=== PATIENT | male | born 1950 | race Caucasian/White ===

== ENCOUNTER → 2018-07-23 06:03 | Outpatient (CLI) | payer MEDICARE, SELFPAY ==
--- NOTE | 2018-07-23 06:07 | CA_ITS ---
PROCEDURE: 2-D M-mode and color Doppler study INDICATIONS FOR THE TEST: Chest pain COPD Heart Murmur Tobacco Smoking Palpitations Fatigue Syncope Edema HypertensionXDiabetes MellitusX Rheumatic Fever SOBXDOE Obesity HyperlipidemiaX Family History HD Additional History CAD,PRE OP,CABG,ABN EKG PATIENT INFORMATION HEIGHT: 68 WEIGHT:179 GENDER: Male B/P:139/69 2-D/M-MODE INTERPRETATION: 2-D MEASUREMENTS OBSERVED VALUES IN CMS Right Ventricular Dimension (RVDd) 4.1 Interventricular Septum (Thickness)(IVsd) .9 Left Ventricular Internal Dimensions(LVIDd) 5.8 Left Ventricular Posterior Wall (Thickness)(LVPWd) 1.2 Aortic Root 3.7 Aortic Cusp Separation 1.0 Left Atrial Dimensions (LAD) 4.1 2D 1. Left atrium is mildly enlarged, left ventricle is normal size, mild concentric left ventricular hypertrophy, visually estimated ejection fraction of 55% with no regional wall motion abnormality, there is abnormal septal motion. 2. The right atrium and right ventricle are mildly enlarged with normal contractility. 3. The aortic valve is thickened and calcified with mild resection the leaflet mobility. 4. The mitral and tricuspid valve leaflets are minimally thickened. 5. The pulmonic valve is poorly visualized. 6. No significant pericardial effusion noted. DOPPLER INTERROGATION: The maximum aortic out flow velocity recorded study 2.1 m/s, resulting in a mean gradient across valve of 11 mmHg this represents mild aortic stenosis, there is no significant aortic insufficiency present. There is mild mitral and tricuspid regurgitation, grade 1 diastolic dysfunction seen without tissue Doppler evidence of raised left atrial pressure. CONCLUSION: 1. Biatrial enlargement, normal left ventricular size, mild concentric left ventricular hypertrophy, visually estimated ejection fraction 55% with no regional wall motion abnormality, grade 1 diastolic dysfunction seen without tissue Doppler evidence of raised left atrial pressure. 2. Mildly enlarged right ventricle is normal contractility. 3. Thickened and calcified aortic valve with mean gradient across valve of 11 mmHg represents mild aortic stenosis, there is no aortic insufficiency present. 4. Mild mitral and tricuspid regurgitation 5. No significant pericardial effusion noted.
--- NOTE | 2018-07-23 06:14 | NM_ITS ---
CARDIOLITE SPECT MYOCARDIAL PERFUSION LEXISCAN, REST AND STRESS: History: Coronary artery disease, bypass surgery, hypertension, diabetes, hyperlipidemia, preop cardiovascular risk assessment Procedure: Patient received a 0.4 mg of intravenous Lexiscan, resting heart rate was 61 bpm resting blood pressure 161/80, with Lexiscan maximum heart rate achieved was 73 beats prominent which is less than 85% of the maximum predicted heart rate and a blood pressure was 134/70. With Lexiscan patient complained of nausea Electrocardiogram: Single electrocardiogram showed sinus rhythm right bundle branch block, with Lexiscan less than 1.[address] segment depression noted from the baseline EKG. The EKG portion of the Lexiscan Myoview is nondiagnostic. Cardiac stress and resting SPECT images: Cardiac stress and resting SPECT images were obtained using technetium 99 Myoview 32.4 mCi stress and 10.2 mCi at rest. Gated SPECT further analysis of segmental wall motion and calculation of the ejection fraction also done. Cardiac stress and resting SPECT images show a mild fixed defect in the inferior wall with normal contractility in the gated SPECT is likely secondary to soft tissue attenuation, computer derived ejection fraction is 53% with no regional wall motion abnormality, right ventricle is normal size and contractility. Conclusion: 1. The EKG portion of the Lexiscan Myoview is nondiagnostic. 2. No scintigraphic evidence of reversible ischemia seen, computer derived ejection fraction is 53% with no regional wall motion abnormality, right ventricle is normal size and contractility. 3. Normal Lexiscan Myoview study.
--- NOTE | 2018-07-23 09:31 | HMH.ITSHM ---
Current Home Medications as stated by this patient Braden Kramer or primary care sales representative. [] livilo pantaprazole lisinopril-hctz metformin januvia cardedilol levothyroxine
== END ==
PROVIDERS: PCP Pain Medicine Pain Medicine; Visit Provider Internal Medicine
DX: I25.10 Atherosclerotic heart disease of native coronary artery without angina pectoris (principal); R94.31 Abnormal electrocardiogram [ECG] [EKG]; E78.5 Hyperlipidemia, unspecified; I45.10 Unspecified right bundle-branch block; R06.02 Shortness of breath; Z01.818 Encounter for other preprocedural examination
CPT/HCPCS: 78452; 93017; 93306; A9502; J2785

== ENCOUNTER → 2020-01-25 12:28 | Outpatient (CLI) | payer MEDICARE, SELFPAY ==
--- NOTE | 2020-01-25 12:30 | CA_ITS ---
APPROVED REPORT Guard Entrance Registrar: Yuli Fulton RVT Laterality: Bilateral Study Quality: Good Indications: carotid bruit Risk Factors Hypertension: Hyperlipidemia Doppler Spectral Velocity Analysis ECA (R) 72.70/9.60 cm/s ECA (L) 75.90/8.60 cm/s dICA (R) 100.50/22.50 cm/s dICA (L) 66.30/23.50 cm/s Mukul (R) 99.40/16.00 cm/s Mukul (L) 82.30/22.50 cm/s pICA (R) 63.10/12.80 cm/s pICA (L) 61.00/13.90 cm/s dCCA (R) 88.80/13.90 cm/s dCCA (L) 77.00/12.80 cm/s pCCA (R) 109.10/11.80 cm/s pCCA (L) 123.00/12.80 cm/s Vert (R) 63.10/9.60 cm/s Vert (L) 47.00/12.80 cm/s ICA/CCA 1.13 ICA/CCA 1.07 Findings Study suggests less than 20% stenosis of the right internal cartoid artery. Study suggests less than 20% stenosis of the left internal cartoid artery. Antegrade flow seen bilateral vertebral arteries. Conclusion Study suggests less than 20% stenosis of the right internal cartoid artery. Study suggests less than 20% stenosis of the left internal cartoid artery. Antegrade flow seen bilateral vertebral arteries. Electronically signed by : Duglas Juarez MD 01/25/2020 15:42:04
[2020-01-25 13:22] LABS: Basophils % 0.8 % (0.1-2.0); Eosinophils # 0.1 K/mm3 (0.0-0.4); Eosinophils % 3.4 % (0.1-12.0); Hematocrit 41.2 % (42.0-52.0); Hemoglobin 13.6 g/dL (14.1-18.0); Lymphocytes # 1.1 K/mm3 (0.7-4.5); Lymphocytes % 25.6 % (10-50); Mean Corpuscular HGB Conc 32.9 g/dL (31.8-35.4); Mean Corpuscular Hemoglobin 31.7 pg (27.0-31.2); Mean Corpuscular Volume 96.4 fl (80-94); Mean Platelet Volume 8.6 fl (7.4-10.4); Monocytes # 0.3 K/mm3 (0.1-1.0); Monocytes % 7.7 % (1.7-9.3); Neutrophils # 2.6 K/mm3 (1.8-7.8); Neutrophils % 62.6 % (37.0-80.0); Platelet Count 117 K/mm3 (142-424); Red Blood Count 4.27 M/mm3 (4.60-6.20); Red Cell Distribution Width 14.3 % (11.5-17.5); White Blood Count 4.2 K/mm3 (4.8-10.8)
[2020-01-25 14:03] LABS: Chloride 106 mmol/L (98-107); Potassium 5.4 mmoL/L (3.5-5.1); Sodium 142 mmol/L (136-145)
[2020-01-25 14:06] LABS: Anion Gap 15.4 mEq/L (5-15); Blood Urea Nitrogen 28 mg/dl (9-20); Carbon Dioxide 26 mmol/L (22.0-30.0); Estimated Glomerular Filt Rate 50 ml/min (>60); GFR (African American) 61 ML/MIN (>60)
[2020-01-25 14:07] LABS: Calcium 10.5 mg/dl (8.4-10.2); Glucose 231 mg/dl (74-100)
[2020-01-25 15:38] LABS: Coronavirus 19 IgG Antibody Negative (Negative); Coronavirus 19 IgM Antibody Negative (Negative)
== END ==
PROVIDERS: PCP Pain Medicine Pain Medicine; Visit Provider Internal Medicine
DX: E78.5 Hyperlipidemia, unspecified (principal); I11.9 Hypertensive heart disease without heart failure; I20.9 Angina pectoris, unspecified; I35.0 Nonrheumatic aortic (valve) stenosis; R01.1 Cardiac murmur, unspecified; R09.89 Other specified symptoms and signs involving the circulatory and respiratory systems; Z95.1 Presence of aortocoronary bypass graft; Z01.818 Encounter for other preprocedural examination
CPT/HCPCS: 36415; 80048; 85025; 86328; 93880

== ENCOUNTER 2020-01-27 08:41 | Day surgery (SDC) | payer MEDICARE, SELFPAY ==
[2020-01-27] VITALS (17 sets, daily range): BP systolic 103–181; BP diastolic 48–87; PULSE 57–86; RESP 12–16; TEMP 36.6; O2SAT 90–97; BMI 27.3
--- NOTE | 2020-01-27 07:34 | IR_ITS ---
APPROVED REPORT Patient Location: Outpatient PROCEDURES Left heart catheterization Left ventriculogram Selective coronary angiogram Left internal mammary angiography Selective engagement of the saphenous vein graft to the diagonal artery Selective engagement of the saphenous vein graft to the ramus intermedius Selective engagement of the saphenous vein graft to the right coronary artery Drug-eluting stent deployment to the saphenous vein graft supplying the diagonal artery Drug-eluting stent deployment to the saphenous vein graft supplying the ramus intermedius INDICATION Coronary artery disease, Accelerated angina pectoris, History of coronary bypass surgery Informed consent was obtained prior to the procedure. COMPLICATIONS NONE Estimated Blood Loss: LESS THAN 10 ML TECHNIQUE One percent lidocaine used to anesthetize the right groin. The right femoral artery was accessed via the Seldinger technique and a 5 [place]er sheath was placed in the right femoral artery. A JL 4, JR4 catheter were used to perform left heart catheterization, left ventriculogram selective coronary angiography as well as selective engagement of the 3 vein grafts and the left internal mammary artery. At the end of the diagnostic procedure therapeutic heparin was administered and the 5 [place]er sheath was exchanged for a 6 [place] sheath. An LCB guide catheter was used to intubate the saphenous vein graft to the ramus intermedius and a Choice PT extra support wire was placed distally. A 3 mm x 38 mm resolute kelley stent was deployed at 24 juan reducing the stenosis to 40%. A 3.5 x 12 mm balloon was deployed at 24 juan which unsuccessfully expanded the stent therefore a 3.75 x 12 mm noncompliant balloon was deployed in the ostial proximal segment of the saphenous vein graft and deployed at 24 juan to finally open the stent completely providing excellent apposition of the stent with excellent post stent dilatation. HOANG-3 flow was present before and after the procedure. After achieving excellent angiographic results the apparatus was used to cannulate the saphenous vein graft to the diagonal artery where the same wire was placed into this graft. A 2.75 x 38 mm resolute kelley stent was deployed at 20 juan reducing the severe stenosis to 0%. HOANG-3 flow was present before and after the procedure. After achieving excellent angiographic results the apparatus was removed the sheath was removed good hemostasis was achieved using Perclose device patient was transferred to the postop holding area stable condition. Prior to the sheath being removed the groin was reprepped gloves were changed. ANGIOGRAPHIC RESULTS The left main artery Has a distal 90% stenosis The left anterior descending artery Is proximally occluded and gives rise to small spindly diagonal arteries The circumflex artery Ostially occluded The right coronary artery Dominant and has proximal 30% stenosis followed by distal 30% stenosis. The posterior descending artery is proximally occluded the posterior lateral branch is moderate bifurcating and has diffuse 40% stenoses The DOYLE ventriculogram reveals Preserved at 50% The left ventricular end-diastolic pressure 15 mmHg Left internal mammary artery is widely patent to a large LAD Saphenous vein graft to the right coronary artery is ostially occluded Saphenous vein graft to the ramus intermedius has severe proximal hazy 90% stenosis Saphenous vein graft to diagonal artery has severe proximal 70% stenosis IMPRESSION Coronary disease as described above Successful stenting of the saphenous vein graft to the ramus intermedius severe disease reduced to 0% with one long drug-eluting stent Successful stenting of the saphenous vein gra
[2020-01-27 10:06] LABS: Chloride 107 mmol/L (98-107); Potassium 4.3 mmoL/L (3.5-5.1); Sodium 141 mmol/L (136-145)
[2020-01-27 10:09] LABS: Anion Gap 14.3 mEq/L (5-15); Blood Urea Nitrogen 31 mg/dl (9-20); Calcium 9.8 mg/dl (8.4-10.2); Carbon Dioxide 24 mmol/L (22.0-30.0); Creatinine Clearance Estimated 54 mL/min (50-200); Estimated Glomerular Filt Rate 47 ml/min (>60); GFR (African American) 56 ML/MIN (>60); Glucose 259 mg/dl (74-100)
--- NOTE | 2020-01-27 13:56 | HMH.PHACLD ---
Braden Kramer has received discharge medication counseling on the following medications: PATIENT IS CURRENTLY TAKING ASPIRIN 81 MG (PATIENT INDICATES HE TAKE 1/2 TAB) DAILY, EFFIENT 10 MG DAILY, LIVALO 2 MG DAILY, CARVEDILOL 6.25 MG BID, AND LISINOPRIL HCTZ 20 MG/25MG DAILY.
[2020-01-27 15:33] LABS: CATHL Activated Clotting Time > 400 SEC (74-125)
== END 2020-01-27 16:00 | disposition home or self-care (01) ==
LOC: CATHLAB 08:41
PROVIDERS: PCP Pain Medicine Pain Medicine; Visit Provider Internal Medicine
DX: E78.5 Hyperlipidemia, unspecified (principal); I11.9 Hypertensive heart disease without heart failure; I35.0 Nonrheumatic aortic (valve) stenosis; R09.89 Other specified symptoms and signs involving the circulatory and respiratory systems; Z95.1 Presence of aortocoronary bypass graft; I25.118 Atherosclerotic heart disease of native coronary artery with other forms of angina pectoris; I25.718 Atherosclerosis of autologous vein coronary artery bypass graft(s) with other forms of angina pectoris; E03.9 Hypothyroidism, unspecified; Z88.8 Allergy status to other drugs, medicaments and biological substances; Z79.84 Long term (current) use of oral hypoglycemic drugs; Z79.82 Long term (current) use of aspirin; Z79.899 Other long term (current) drug therapy; E11.9 Type 2 diabetes mellitus without complications; I25.82 Chronic total occlusion of coronary artery
CPT/HCPCS: 80048; 85347; 92937; 92938; 93306; 93459; 99152; 99153; C1725; C1760; C1769; C1876; C1894; C9604; C9605; J1644; Q9967

== ENCOUNTER 2023-03-26 13:39 | Outpatient (CLI) | payer MEDICARE, SELFPAY ==
--- NOTE | 2023-03-26 | CA_ITS ---
APPROVED REPORT EXAM: Comprehensive 2D, Doppler, and color-flow Echocardiogram Vehicle Technician: Dina Juan CRT Ht: 5 ft 8 in Wt: 175lbs BSA: 1.93 BP: 146/52 mmHg Indications: Abnormal ECG, Chest Pain, Shortness of Breath, Diabetes, CAD, Hyperlipidemia, Hypertension/HDD, CABG, 2D Dimensions Left Atrium 3.15 cm LVEF (Chowdhury's) 45.90 % LVOT 1.99 cm (M/F) 1.5-2.5 LV Volume 173.90 mL LA Volume 39.30 mL LA Volume Index 20.40 mL/m2 (M/F) 16-34 EF AP4 55.00 % EF AP2 36.7 % EF BP 45.9 % GL Strain -16.6 % M-Mode Dimensions RVDd 3.27 cm (0.9-2.6) LVDd 5.15 cm (3.5-5.7) Ao Diam 5.37 cm (2.0-3.7) LVDs 3.82 cm (3.5-5.7) IVSd 1.63 cm (0.6-1.1) PWd 1.23 cm (0.6-1.1) EF (Teich) 50.50% FS 25.80% EDV (Teich) 126.60 mL TAPSE 1.83 (<1.7) ESV (Teich) 62.70 mL LV Diastology E Decel Time 283 (160-240 msec) E/A Ratio 1.03 MED E' 7.2 (>= 7 cm/sec) MED A' 9.80 cm/s E'/MED E' Ratio 12.94 (<= 14) LAT E' 9.4 (>= 10 cm/sec) LAT A' 9.20 cm/s E/LAT E' Ratio 9.91 (<= 14) Aortic Valve LVOT Max 183.0 (70-110 cm/s) JASMIN Index 1.01 cm2/m2 LVOT VTI 51.83 cm AoV Peak August. 314.0 (50-130 cm/s) AO Peak GR. 33.10 mmHg AO Mean GR. 22.80 (<5 mmHg) AO VTI 82.5 (18-25 cm) JASMIN (VTI) 1.95 (2.5-4.5 cm2) Mitral Valve MV E Max August. 93.0 (40-130 cm/s) MV A Velocity 90.0 (40-130 cm/s) E/A Ratio 1.03 MV Decel. Time 283 (160-240 ms) Tricuspid Valve TR P. Velocity 244.00 cm/s RAP Estimate 10.00 mmHg RVSP 33.80 mmHg Left Ventricle The left ventricle is normal size. Left ventricular systolic function is mild to moderately decreased. There is normal left ventricular wall thickness. There is mild to moderate global hypokinesis present. There is severe hypokinesis of the septal, inferoseptal, and anteroseptal LV diaz. Grade 1 diastolic dysfunction is present. LVEF is 40%. Right Ventricle Right ventricle is mildly dilated. Right ventricle is mildly hypokinetic. Atria The left atrium size is normal. The right atrium size is normal. There is no Doppler evidence of interatrial shunt. Aortic Valve The aortic valve is moderately thickened. Mild aortic stenosis. JASMIN is 1.7 cm2. Peak velocity 3.0 m/s. Mean AV gradient is 20 mmHg. Max AV gradient 40 mmHg. DI=0.57. SVi=78 mL/m2. Mitral Valve The mitral valve is normal in structure. No evidence of mitral valve stenosis. Trace mitral regurgitation. Tricuspid Valve The tricuspid valve leaflets are thin and pliable. Mild tricuspid regurgitation. RVSP is 20-25 mmHg. Pulmonic Valve The pulmonary valve is normal in structure. Trace pulmonic regurgitation. Great Vessels The aortic root is normal in size. The ascending aorta is not well visualized. IVC is normal in size and collapses >50% with inspiration. Pericardium There is no pericardial effusion. Other Information Study Quality: Fair Conclusion Mild to moderate reduction in LV systolic function (LVEF 40%). Severe hypokinesis of the septal, inferoseptal, and anteroseptal LV diaz. Mildly dilated RV with mild reduction in RV function. Moderate AV thickening is mild aortic stenosis (JASMIN is 1.7 cm2. Peak velocity 3.0 m/s. Mean AV gradient is 20 mmHg. Max AV gradient 40 mmHg. DI=0.57. SVi=78 mL/m2). Mild TR. Electronically signed by : Leticia Matamoros MD 03/29/2023 17:49:52
== END 2023-03-26 23:59 ==
LOC: RT 13:39
PROVIDERS: PCP Pain Medicine Pain Medicine; Visit Provider Physician Assistant
DX: R07.89 Other chest pain (principal); R94.31 Abnormal electrocardiogram [ECG] [EKG]; R60.0 Localized edema
CPT/HCPCS: 93306

== ENCOUNTER 2023-05-19 14:00 | Outpatient (CLI) | payer MEDICARE, SELFPAY ==
[2023-05-19 14:41] LABS: Basophils % 0.9 % (0.1-2.0); Eosinophils # 0.3 K/mm3 (0.0-0.4); Hematocrit 36.4 % (42.0-52.0); Lymphocytes # 1.1 K/mm3 (0.7-4.5); Lymphocytes % 25.1 % (10-50); Mean Corpuscular HGB Conc 32.9 g/dL (31.8-35.4); Mean Corpuscular Volume 103.2 fl (80-94); Mean Platelet Volume 8.8 fl (7.4-10.4); Monocytes # 0.3 K/mm3 (0.1-1.0); Neutrophils # 2.7 K/mm3 (1.8-7.8); Platelet Count 75 K/mm3 (142-424); Red Blood Count 3.52 M/mm3 (4.60-6.20); Red Cell Distribution Width 13.6 % (11.5-17.5); White Blood Count 4.5 K/mm3 (4.8-10.8)
[2023-05-19 14:55] LABS: Anion Gap 12.6 mEq/L (5-15); Blood Urea Nitrogen 27 mg/dl (9-20); Calcium 10.1 mg/dl (8.4-10.2); Carbon Dioxide 22 mmol/L (22.0-30.0); Chloride 113 mmol/L (98-107); Estimated Glomerular Filt Rate 54 ml/min (>60); GFR (African American) 66 ML/MIN (>60); Glucose 161 mg/dl (74-100); Potassium 4.6 mmoL/L (3.5-5.1); Sodium 143 mmol/L (136-145)
== END 2023-05-19 23:59 ==
LOC: LAB 14:00
PROVIDERS: Visit Provider Internal Medicine
DX: E11.9 Type 2 diabetes mellitus without complications (principal); E78.2 Mixed hyperlipidemia; I25.10 Atherosclerotic heart disease of native coronary artery without angina pectoris; R93.1 Abnormal findings on diagnostic imaging of heart and coronary circulation; Z79.84 Long term (current) use of oral hypoglycemic drugs; Z79.85 Long-term (current) use of injectable non-insulin antidiabetic drugs
CPT/HCPCS: 36415; 80048; 85025

== ENCOUNTER 2023-05-27 12:36 | Observation (INO) | payer MEDICARE, SELFPAY ==
[2023-05-27] VITALS (19 sets, daily range): BP systolic 122–157; BP diastolic 56–80; PULSE 55–75; RESP 16–18; TEMP 36.6–36.9; O2SAT 94–100; BMI 27.6; BMI 27.4
--- NOTE | 2023-05-27 07:19 | IR_ITS ---
APPROVED REPORT Patient Location: Outpatient Drug Purchaser: MARKELL Monzon RT (R) PROCEDURES Left heart catheterization Left ventriculogram Selective coronary angiogram Selective engagement of the left internal mammary artery supplying the LAD Selective engagement of saphenous vein graft to the right coronary Selective engage in the saphenous vein graft to the ramus intermedius Selective engagement of saphenous vein graft to the circumflex artery Bilateral selective renal angiography Drug-eluting stent deployment supplying the saphenous vein graft to the ramus intermedius FFR angiogram to the dominant [place] right coronary Drug-eluting stent deployment to the ostial proximal dominant right coronary INDICATION Coronary artery disease, Angina pectoris, Abnormal noninvasive testing, History of coronary bypass surgery, In-stent restenosis in the saphenous vein graft to the ramus intermedius, Angiographic ambiguity involving the dominant right coronary, FFR index of 0.79 in the proximal dominant right coronary, Chronic renal failure creatinine 1.4, 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 COMPLICATIONS NONE Estimated Blood Loss: LESS THAN 10 ML TECHNIQUE One percent lidocaine used to anesthetize the right groin. The right femoral artery was accessed via the Seldinger technique and a 5 [place] sheath was placed in the right femoral artery. A JL 4, JR4 catheter were used to perform left heart catheterization, left ventriculogram selective coronary angiography as well as selective engagement of the 3 vein grafts and the left internal mammary artery. The JR4 catheter was used to cannulate each renal artery and perform selective angiography based on hypertension probably vascular disease and renal insufficiency. At the end of the diagnostic angiogram therapeutic heparin was administered giving a therapeutic ACT and the 5 Q[place]ari sheath was exchanged for a 6 [place]ari sheath. A JR4 6 [place] catheter was used to intubate the saphenous vein graft to the ramus intermedius and a Choice PT extra-support wire was placed distally. A 3.5 x 38 mm Levy frontier stent was deployed at 24 juan reducing the severe stenosis to 0%. Excellent graft results were obtained. Following this FFR angiography was performed of the right coronary artery which demonstrated an FFR index of 0.79 in the proximal dominant right coronary artery. Because of this the guide catheter was placed in the right coronary artery followed by Choice PT extra-support wire. A guide liner was required for additional support and delivery and a 4 mm x 38 mm Levy frontier stent was deployed at 20 juan reducing the hemodynamically severe stenosis to 0%. Patient had a transient episode of bradycardia and hypotension which resolved after few minutes. No atropine was required. After achieving excellent angiographic results with HOANG-3 flow being present down the right coronary before and after the procedure the apparatus was removed the groin is reprepped closure change sheath was removed and hemostasis was achieved using Perclose device patient was transferred to the postop holding in stable condition ANGIOGRAPHIC RESULTS The left main artery Proximally occluded The right coronary artery Is a dominant vessel and has proximal 50 to 60% eccentric stenoses which proved to produce an FFR index of 0.79. Distally there are 40-50 and 60% stenoses throughout the right coronary artery with a 60% stenosis in the proximal posterior descending The DOYLE ventriculogram reveals Reduced at 40% The left ventricular end-diastolic pressure 15 mmHg MCD[place]LL to LAD widely patent Saphenous artery to circumflex artery is widely patent Saphenous vein graft to ramus intermedius has a ostial proximal concentric 90% stenosis within the stent. Following stenting there was wide patency of the saphenous vein graft with inline flow to the ramus intermedius Saphenous vein graft right coronary ostially occluded Right renal artery with a proximal 10 to 20% nonflow limiting stenosis Left renal artery with a proximal eccentric 30 to 40% nonflow limiting stenosis IMPRESSION Coronary disease as described above Successful stenting of the saphenous vein graft to the ramus intermedius severe disease reduced to 0% with 1 drug-eluting stent Hemodynamically severe stenosis in the proximal dominant right coronary artery creating an FFR index of 0.79 with successful stenting reducing the lesion to less than 10% with 1 drug-eluting stent Reduced ejection fraction Normal LVEDP Nonflow limiting renal artery stenosis as described above PLAN 1. Dual antiplatelet therapy 2. Patient received complex procedure with copious contrast in the setting of renal insufficiency and LV dysfunction. Patient should be admitted and given IV fluids and watch closely overnight given complex revascularization 3. Standard therapy for LV dysfunction 4. Avoidance of tobacco products 5. Risk factor modification 6. LDL less than 55 to achieve that high intensity statin Electronically signed by : Kennedy Clark MD 05/27/2023 12:50:45
[2023-05-27 10:08] LABS: Basophils # 0.1 K/mm3 (0-0.2); Basophils % 1.6 % (0.1-2.0); Eosinophils # 0.3 K/mm3 (0.0-0.4); Eosinophils % 7.2 % (0.1-12.0); Hemoglobin 12.6 g/dL (14.1-18.0); Lymphocytes # 1.2 K/mm3 (0.7-4.5); Lymphocytes % 25.9 % (10-50); Mean Corpuscular HGB Conc 32.3 g/dL (31.8-35.4); Mean Corpuscular Hemoglobin 33.7 pg (27.0-31.2); Mean Corpuscular Volume 104.4 fl (80-94); Mean Platelet Volume 8.5 fl (7.4-10.4); Monocytes # 0.4 K/mm3 (0.1-1.0); Monocytes % 7.7 % (1.7-9.3); Neutrophils # 2.6 K/mm3 (1.8-7.8); Neutrophils % 57.6 % (37.0-80.0); Platelet Count 88 K/mm3 (142-424); Red Blood Count 3.73 M/mm3 (4.60-6.20); Red Cell Distribution Width 14.1 % (11.5-17.5); White Blood Count 4.5 K/mm3 (4.8-10.8)
[2023-05-27 11:35] LABS: Chloride 114 mmol/L (98-107); Sodium 141 mmol/L (136-145)
[2023-05-27 11:36] LABS: Potassium 4.2 mmoL/L (3.5-5.1)
[2023-05-27 11:39] LABS: Anion Gap 12.2 mEq/L (5-15); Blood Urea Nitrogen 29 mg/dl (9-20); Calcium 10.2 mg/dl (8.4-10.2); Carbon Dioxide 19 mmol/L (22.0-30.0); Creatinine Clearance Estimated 57 mL/min (50-200); Estimated Glomerular Filt Rate 50 ml/min (>60); GFR (African American) 60 ML/MIN (>60); Glucose 140 mg/dl (74-100)
[2023-05-27] MEDS: LIDOCAINE 1% 10ML MDV 20 ML IJ (11:43)
[2023-05-27] MEDS: diphenhydrAMINE 50MG/ML VIAL 50 MG IV (11:43)
[2023-05-27] MEDS: 0.9 % SODIUM CHLORIDE 500 ML 25 ML IV (11:43)
[2023-05-27] MEDS: HEPARIN 1,000 UNITS/500ML NS (CATH LAB) 3000 UNIT IV (11:43)
[2023-05-27] MEDS: MIDAZOLAM HCL 1MG/1ML 5ML VIAL 1 MG IV (11:44)
[2023-05-27] MEDS: FENTANYL 100MCG/2ML VIAL 50 MCG IV (11:46)
[2023-05-27] MEDS: HEPARIN 1,000 UNITS/ML 10ML VIAL (CATH LAB) 10000 UNIT IV (12:37)
[2023-05-27] MEDS: PRASUGREL 10MG TAB 60 MG PO (12:44)
[2023-05-27] MEDS: IOPAMIDOL-370 (76%);100ML BOTTLE 150 ML IV (14:46)
[2023-05-27 14:49] LABS: CATHL Activated Clotting Time 284 SEC (74-125)
--- NOTE | 2023-05-27 14:57 | EXP.HP ---
History of Present Illness *Admission Date: 05/27/23 *Reason for visit:: chest pain, CKD *History of present illness: 72-year-old male with history of CABG x 5, CAD, hypertension, hyperlipidemia, hypothyroid, diabetes. He presented to [facility] for an elective left heart cath due to persistent chest pain. Patient also noted to have CKD with creatinine of 1.4. BUN 29. Extensive procedure due to evaluation of grafts and [place] vessels. Patient received 2 stents during his procedure, 1 to the saphenous graft in 1 to his [place] RCA. In the light of contrast load, CKD, femoral approach, cardiology requested admission for monitoring overnight and gentle hydration. On evaluation, patient initially was sleeping. Reevaluation later, he was awake and denied any significant pain at this time. Appears to have had improvement in symptoms. Making urine. On room air. No nausea or vomiting, no bleeding from femoral insertion site. Patient's at bedside. Denies any fever, confusion, headache. [facility] Disclaimer: The information contained in this section may have been updated after the patient was seen, as this information can be updated by other users. Medical History Chest pain Gastroesophageal reflux disease Abnormal EKG Right bundle branch block (RBBB) HLD (hyperlipidemia) Pre-op evaluation Diabetes SOB (shortness of breath) HHD (hypertensive heart disease) CAD (coronary artery disease) Surgical History S/P coronary artery bypass graft x 5 Social History Smoking Status: Never smoker alcohol intake: never substance use type: denies use current occupational status: retired Travel in the last 8 weeks: Inside the [place] Review of Systems Review of Systems Review of systems (narrative): 14 point review of systems performed, pertinent positives and negatives as per [facility] Meds Home Medications and Allergies Home Medications Medication Instructions Recorded Confirmed Type aspirin 81 mg tablet,delayed 81 mg PO DAILY 07/21/18 05/27/23 History release (Adult Low Dose Aspirin) carvedilol 6.25 mg tablet 6.25 mg PO BID 07/21/18 05/27/23 History febuxostat 40 mg tablet (Uloric) 40 mg PO DAILY 07/21/18 05/27/23 History levothyroxine 75 mcg tablet 75 mcg PO DAILY 07/21/18 05/27/23 History lisinopril 20 1 tab PO DAILY 07/21/18 05/27/23 History mg-hydrochlorothiazide 25 mg tablet metformin 1,000 mg tablet 1,000 mg PO BID 07/21/18 05/27/23 History pantoprazole 40 mg tablet,delayed 40 mg PO DAILY 07/21/18 05/27/23 History release (Protonix) pitavastatin calcium 2 mg tablet 2 mg PO DAILY 07/21/18 05/27/23 History (Livalo) prasugrel 10 mg tablet (Effient) 10 mg PO DAILY 07/21/18 05/27/23 History dapagliflozin propanediol 10 mg 10 mg PO DAILY 03/17/23 05/27/23 History tablet (Farxiga) finasteride 5 mg tablet 5 mg PO DAILY 03/17/23 05/27/23 History nitroglycerin 0.4 mg sublingual 0.4 mg buccal NEEDED PRN Chest 03/17/23 05/27/23 History tablet Pain tirzepatide 2.5 mg/0.5 mL 2.5 mg SQ WEEKLY 03/17/23 05/27/23 History subcutaneous pen injector (Mounjaro) New Prescriptions to Start Prescriptions: Allergies Allergy/AdvReac Type Severity Reaction Status Date / Time atorvastatin [From Lipitor] Allergy Mild Verified 05/19/23 13:29 pravastatin [From Pravachol] Allergy Mild Verified 05/19/23 13:29 rosuvastatin [From Crestor] Allergy Mild Verified 05/19/23 13:29 simvastatin [From Zocor] Allergy Mild Verified 05/19/23 13:29 Exam Data for Last 24 hours Vital signs and Labs for Last 24 Hours: Temp Pulse Resp BP Pulse Ox O2 Del Method 98.2 F 66 18 149/75 H 95 Room Air 05/27/23 09:45 05/27/23 13:00 05/27/23 13:00 05/27/23 13:00 05/27/23 13:00 05/27/23 13:00 Laboratory Results - last 24 hr 05/27/23 09:53: WBC 4.5 L, RBC 3.73 L, Hgb 12.6 L, Hct 39.0 L, MCV 104.4 H, MCH 33.7 H, MCHC 32.3, RDW 14.1, Plt Count 88 L, MPV 8.5, Neut % (Auto) 57.6, Lymph % (Auto) 25.9, [place] % (Auto) 7.7, Eos % (Auto) 7.2, Baso % (Auto) 1.6, Neut # (Auto) 2.6, Lymph # (Auto) 1.2, [place] # (Auto) 0.4, Eos # (Auto) 0.3, Baso # (Auto) 0.1, Sodium 141, Potassium 4.2, Chloride 114 H, Carbon Dioxide 19 L, Anion Gap 12.2, BUN 29 H, Creatinine 1.40 H, Estimated Creat Clear 57, Estimated GFR 50 L, Est GFR ( Amer) 60, Glucose 140 H, Calcium 10.2 05/27/23 12:11: Activated Clotting Time 284 H* I & O for Last 24 hours: Intake & Output 05/24/23 05/25/23 05/26/23 05/27/23 23:59 23:59 23:59 23:59 Weight 81.845 kg Constitutional Constitutional: no acute distress, average body habitus and cooperative *Routine HEENT Exam Head: Present normocephalic Eye: Present EOMI and PERRL ENT: Present mucous membranes moist *Routine Neck Exam Neck: Present supple; Absent lymphadenopathy *Routine Respiratory Exam Respiratory: Present CTA bilaterally; Absent rhonchi, wheezes or crackles *Routine Cardiovascular Exam Cardiovascular: Present RRR and murmur *Routine Abdominal Exam Abdominal: Present soft and normoactive bowel sounds; Absent tenderness *Routine Rectal Exam Rectal:: deferred *Routine Genitalia Exam Genitalia:: deferred *Routine Extremities Exam Extremities: Absent cyanosis, clubbing or edema *Routine Skin Exam Skin: Present warm; Absent rash *Routine Neurological Exam Neurological: Present alert, oriented X3 and moving all extremities; Absent altered mental status Assessment and Plan *Assessment and plan (1) Typical angina: Status: Acute Category: Medical Code(s): I20.9 - Angina pectoris, unspecified (2) CAD (coronary artery disease): Status: Chronic Qualifiers: Associated angina: without angina Coronary Disease-Associated Artery/Lesion type: [place] artery [place] vs. transplanted heart: [place] heart Qualified Code(s): I25.10 - Atherosclerotic heart disease of [place] coronary artery without angina pectoris Category: Medical Code(s): I25.10 - Atherosclerotic heart disease of [place] coronary artery without angina pectoris (3) HHD (hypertensive heart disease): Status: Chronic Qualifiers: Heart failure presence: without heart failure Qualified Code(s): I11.9 - Hypertensive heart disease without heart failure Category: Medical Code(s): I11.9 - Hypertensive heart disease without heart failure (4) S/P coronary artery bypass graft x 5: Status: Chronic Category: Surgical Code(s): Z95.1 - Presence of aortocoronary bypass graft (5) Diabetes: Status: Chronic Qualifiers: Diabetes mellitus complication status: without complication Diabetes mellitus detention insulin use: without detention use Diabetes mellitus type: type 2 Qualified Code(s): E11.9 - Type 2 diabetes mellitus without complications Category: Medical Code(s): E11.9 - Type 2 diabetes mellitus without complications (6) HLD (hyperlipidemia): Status: Chronic Qualifiers: Hyperlipidemia type: mixed hyperlipidemia Qualified Code(s): E78.2 - Mixed hyperlipidemia Category: Medical Code(s): E78.5 - Hyperlipidemia, unspecified (7) Gastroesophageal reflux disease: Status: Chronic Qualifiers: Esophagitis presence: esophagitis presence not specified Qualified Code(s): K21.9 - Gastro-esophageal reflux disease without esophagitis Category: Medical Code(s): K21.9 - Gastro-esophageal reflux disease without esophagitis Plan 72-year-old male with multiple cardiac comorbidities, seen for elective cath. In setting of chronic kidney disease and high contrast load from complexity of procedure, cardiology requested admission for observation overnight. Discussed case with cardiology, patient had good results but would benefit from serial monitoring and observation. Medicine agreed to admit. Stable on evaluation. Problems addressed as follows Typical angina CAD History of CABG HLD -Taken for cath today. Received 2 stents, 1 to saphenous graft and 1 to RCA. Good results with no further significant flow-limiting lesions. Monitor overnight. Continue aspirin 81 mg, prasugrel 10 mg. -Cardiology consulted, recommend monitoring overnight and continuing dual antiplatelet therapy. Pending kidney function, anticipate discharge in the next day or two -Continue carvedilol 6.25 mg twice -Resume statin CKD: - baseline Cr 1.4, BUN 28. Gentle hydration overnight with NS at 100 cc an hour for 1 L. Repeat CBC, CMP, magnesium ordered for the morning. Diabetes -Continue metformin 1000 mg twice daily. -A1c pending -Sliding scale insulin with fingersticks ACHS BPH: Continue finasteride 5mg daily GERD: Continue protonix 40mg daily Full code Heparinized and [facility] Cardiac diet
--- NOTE | 2023-05-27 17:35 | PC.NURSE ---
Patient new admit from [facility]. Patient a&ox4 and vss.
[2023-05-27] MEDS: 0.9 % SODIUM CHLORIDE 1000ML 1,000 ML 100 ML IV (18:44)
[2023-05-27] MEDS: ACETAMINOPHEN 325MG TAB 650 MG PO (22:40)
[2023-05-28] VITALS: BP 134/64; PULSE 57; PULSE 61; RESP 16; TEMP 37.1; O2SAT 98
[2023-05-28 04:00] VITALS: BP 111/52; PULSE 63; PULSE 65; RESP 16; TEMP 37.4; O2SAT 97; BMI 27.3
[2023-05-28 06:25] LABS: Basophils # 0.1 K/mm3 (0-0.2); Basophils % 1.1 % (0.1-2.0); Eosinophils # 0.3 K/mm3 (0.0-0.4); Eosinophils % 5.7 % (0.1-12.0); Hematocrit 34.2 % (42.0-52.0); Lymphocytes # 1.1 K/mm3 (0.7-4.5); Lymphocytes % 25.7 % (10-50); Mean Corpuscular HGB Conc 32.8 g/dL (31.8-35.4); Mean Corpuscular Hemoglobin 33.6 pg (27.0-31.2); Mean Corpuscular Volume 102.2 fl (80-94); Mean Platelet Volume 8.5 fl (7.4-10.4); Monocytes # 0.3 K/mm3 (0.1-1.0); Monocytes % 7.4 % (1.7-9.3); Neutrophils # 2.6 K/mm3 (1.8-7.8); Platelet Count 90 K/mm3 (142-424); Red Blood Count 3.34 M/mm3 (4.60-6.20); Red Cell Distribution Width 14.2 % (11.5-17.5); White Blood Count 4.3 K/mm3 (4.8-10.8)
[2023-05-28 06:36] LABS: Anion Gap 12.3 mEq/L (5-15); Blood Urea Nitrogen 28 mg/dl (9-20); Calcium 9.5 mg/dl (8.4-10.2); Carbon Dioxide 19 mmol/L (22.0-30.0); Chloride 114 mmol/L (98-107); Creatinine Clearance Estimated 46 mL/min (50-200); Estimated Glomerular Filt Rate 40 ml/min (>60); GFR (African American) 48 ML/MIN (>60); Glucose 179 mg/dl (74-100); Potassium 4.3 mmoL/L (3.5-5.1); Sodium 141 mmol/L (136-145)
[2023-05-28 06:44] LABS: Hemoglobin 11.2 g/dL (14.1-18.0)
[2023-05-28] MEDS: ACETAMINOPHEN 325MG TAB 650 MG PO (07:08)
[2023-05-28 08:00] VITALS: BP 134/65; PULSE 60; PULSE 68; RESP 20; TEMP 36.5; O2SAT 98
--- NOTE | 2023-05-28 08:22 | HMH.PHAINT1 ---
Pharmacy Intervention Comments: Home medication list verified via outside pharmacy and patient
--- NOTE | 2023-05-28 09:59 | P.DS_ITS ---
General Admission date:: 05/27/23 Discharge date: 05/28/23 HPI HPI HPI: 72-year-old male with history of CABG x 5, CAD, hypertension, hyperlipidemia, hypothyroid, diabetes. He presented to [facility] for an elective left heart cath due to persistent chest pain. Patient also noted to have CKD with creatinine of 1.4. BUN 29. Extensive procedure due to evaluation of grafts and [place] vessels. Patient received 2 stents during his procedure, 1 to the saphenous graft in 1 to his [place] RCA. In the light of contrast load, CKD, femoral approach, cardiology requested admission for monitoring overnight and gentle hydration. On evaluation, patient initially was sleeping. Reevaluation later, he was awake and denied any significant pain at this time. Appears to have had improvement in symptoms. Making urine. On room air. No nausea or vomiting, no bleeding from femoral insertion site. Patient's at bedside. Denies any fever, confusion, headache. Hospital Course Hospital Course Hospital Course: 72-year-old male with multiple cardiac comorbidities, seen for elective cath. In setting of chronic kidney disease and high contrast load from complexity of procedure, cardiology requested admission for observation overnight. Discussed case with cardiology, patient had good results. Monitored overnight to monitor kidney function and stability of right femoral access site. No issues overnight. Labs acceptable this morning. Making good urine. Stable to discharge home. Problems addressed as follows: Typical angina CAD History of CABG HLD -Taken for cath on 05/26. Tolerated procedure well. Received 2 stents, 1 to saphenous graft and 1 to RCA. Good results with no further significant flow- limiting lesions. Monitored overnight. Continue aspirin 81 mg, prasugrel 10 mg. Cardiology evaluated patient the following morning (morning of discharge). Given clinical stability and stability of kidney function with good urine output, okay to discharge home. Will continue carvedilol 6.25 mg twice daily. Resume statin therapy. Discontinue lisinopril and initiate Entresto twice daily. Stable to discharge home with close follow-up with cardiology. CKD: - baseline Cr 1.4, BUN 28. Hydrated overnight with 1 L IV fluids. BUN remained stable at 28, creatinine bumped slightly to 1.7. Will have repeat labs next week. Diabetes -Continue metformin 1000 mg twice daily. A1c well-controlled at 6.1. Continue home regimen. BPH: Continue finasteride 5mg daily GERD: Continue protonix 40mg daily Exam Data for Last 24 hours Vital signs and Labs for Last 24 Hours: Temp Pulse Resp BP Pulse Ox O2 Del Method 97.7 F 68 20 134/65 98 Room Air 05/28/23 08:00 05/28/23 08:00 05/28/23 08:00 05/28/23 08:00 05/28/23 08:00 05/28/23 08:00 Laboratory Results - last 24 hr 05/27/23 09:53: WBC 4.5 L, RBC 3.73 L, Hgb 12.6 L, Hct 39.0 L, MCV 104.4 H, MCH 33.7 H, MCHC 32.3, RDW 14.1, Plt Count 88 L, MPV 8.5, Neut % (Auto) 57.6, Lymph % (Auto) 25.9, [place] % (Auto) 7.7, Eos % (Auto) 7.2, Baso % (Auto) 1.6, Neut # (Auto) 2.6, Lymph # (Auto) 1.2, [place] # (Auto) 0.4, Eos # (Auto) 0.3, Baso # (Auto) 0.1, Sodium 141, Potassium 4.2, Chloride 114 H, Carbon Dioxide 19 L, Anion Gap 12.2, BUN 29 H, Creatinine 1.40 H, Estimated Creat Clear 57, Estimated GFR 50 L, Est GFR ( Amer) 60, Glucose 140 H, Calcium 10.2 05/27/23 12:11: Activated Clotting Time 284 H* 05/28/23 05:13: WBC 4.3 L, RBC 3.34 L, Hgb 11.2 L D, Hct 34.2 L, MCV 102.2 H, MCH 33.6 H, MCHC 32.8, RDW 14.2, Plt Count 90 L, MPV 8.5, Neut % (Auto) 60.0, Lymph % (Auto) 25.7, [place] % (Auto) 7.4, Eos % (Auto) 5.7, Baso % (Auto) 1.1, Neut # (Auto) 2.6, Lymph # (Auto) 1.1, [place] # (Auto) 0.3, Eos # (Auto) 0.3, Baso # (Auto) 0.1, Sodium 141, Potassium 4.3, Chloride 114 H, Carbon Dioxide 19 L, Anion Gap 12.3, BUN 28 H, Creatinine 1.70 H D, Estimated Creat Clear 46, Estimated GFR 40 L, Est GFR ( Amer) 48 L, Glucose 179 H D, Calcium 9.5 I & O for Last 24 hours: Intake & Output 05/25/23 05/26/23 05/27/23 05/28/23 23:59 23:59 23:59 23:59 Intake Total 510 / 750 480 / 480 Output Total 0 / 0 Balance 510 / 750 480 / 480 Weight 81.845 kg 81.845 kg Constitutional Constitutional: no acute distress, average body habitus and cooperative *Routine HEENT Exam Head: Present normocephalic Eye: Present PERRL *Routine Respiratory Exam Respiratory: Present CTA bilaterally; Absent accessory muscle use, wheezes or crackles *Routine Cardiovascular Exam Cardiovascular: Present RRR, Normal S1, Normal S2 and murmur Comments: Right groin cath site normal on inspection and palpation *Routine Abdominal Exam Abdominal: Present soft; Absent tenderness *Routine Rectal Exam Patient deferred: visual exam *Routine Exam Patient deferred: penile exam *Routine Extremities Exam Extremities: Present pulses intact; Absent cyanosis or edema *Routine Skin Exam Skin: Present intact; Absent erythema or wounds *Routine Neurological Exam Neurological: Present alert, oriented X3 and moving all extremities; Absent altered mental status Routine Psychiatric Exam Psychiatric: Present cooperative Results Data Completed and Pending Labs on day of discharge: Labs from last 24 hours 05/28/23 05/27/23 05/27/23 05:13 12:11 09:53 WBC 4.3 L 4.5 L RBC 3.34 L 3.73 L Hgb 11.2 L D 12.6 L Hct 34.2 L 39.0 L MCV 102.2 H 104.4 H MCH 33.6 H 33.7 H MCHC 32.8 32.3 RDW 14.2 14.1 Plt Count 90 L 88 L MPV 8.5 8.5 Neut % (Auto) 60.0 57.6 Lymph % (Auto) 25.7 25.9 [place] % (Auto) 7.4 7.7 Eos % (Auto) 5.7 7.2 Baso % (Auto) 1.1 1.6 Neut # (Auto) 2.6 2.6 Lymph # (Auto) 1.1 1.2 [place] # (Auto) 0.3 0.4 Eos # (Auto) 0.3 0.3 Baso # (Auto) 0.1 0.1 Activated Clotting Time 284 H* Sodium 141 141 Potassium 4.3 4.2 Chloride 114 H 114 H Carbon Dioxide 19 L 19 L Anion Gap 12.3 12.2 BUN 28 H 29 H Creatinine 1.70 H D 1.40 H Estimated Creat Clear 46 57 Estimated GFR 40 L 50 L Est GFR ( Amer) 48 L 60 Glucose 179 H D 140 H Calcium 9.5 10.2 DS: Diagnosis Discharge Diagnosis (1) Typical angina: Status: Acute Code(s): I20.9 - Angina pectoris, unspecified (2) CAD (coronary artery disease): Status: Chronic Code(s): I25.10 - Atherosclerotic heart disease of [place] coronary artery without angina pectoris Qualifiers: Associated angina: without angina Coronary Disease-Associated Artery/Lesion type: [place] artery [place] vs. transplanted heart: [place] heart Qualified Code(s): I25.10 - Atherosclerotic heart disease of [place] coronary artery without angina pectoris (3) HHD (hypertensive heart disease): Status: Chronic Code(s): I11.9 - Hypertensive heart disease without heart failure Qualifiers: Heart failure presence: without heart failure Qualified Code(s): I11.9 - Hypertensive heart disease without heart failure (4) S/P coronary artery bypass graft x 5: Status: Chronic Code(s): Z95.1 - Presence of aortocoronary bypass graft (5) Diabetes: Status: Chronic Code(s): E11.9 - Type 2 diabetes mellitus without complications Qualifiers: Diabetes mellitus complication status: without complication Diabetes mellitus [employer] insulin use: without [place] [employer] use Diabetes mellitus type: type 2 Qualified Code(s): E11.9 - Type 2 diabetes mellitus without complications (6) HLD (hyperlipidemia): Status: Chronic Code(s): E78.5 - Hyperlipidemia, unspecified Qualifiers: Hyperlipidemia type: mixed hyperlipidemia Qualified Code(s): E78.2 - Mixed hyperlipidemia (7) Gastroesophageal reflux disease: Status: Chronic Code(s): K21.9 - Gastro-esophageal reflux disease without esophagitis Qualifiers: Esophagitis presence: esophagitis presence not specified Qualified Code(s): K21.9 - Gastro-esophageal reflux disease without esophagitis Meds Home Medications and Allergies Home Medications Medication Instructions Recorded Confirmed Type aspirin 81 mg tablet,delayed 81 mg PO DAILY 07/21/18 05/27/23 History release (Adult Low Dose Aspirin) carvedilol 6.25 mg tablet 6.25 mg PO BID 07/21/18 05/27/23 History febuxostat 40 mg tablet (Uloric) 40 mg PO DAILY 07/21/18 05/27/23 History levothyroxine 75 mcg tablet 75 mcg PO DAILY 07/21/18 05/28/23 History metformin 1,000 mg tablet 1,000 mg PO BID 07/21/18 05/27/23 History pantoprazole 40 mg tablet,delayed 40 mg PO DAILY 07/21/18 05/27/23 History release (Protonix) pitavastatin calcium 2 mg tablet 2 mg PO DAILY 07/21/18 05/27/23 History (Livalo) prasugrel 10 mg tablet (Effient) 10 mg PO DAILY 07/21/18 05/27/23 History dapagliflozin propanediol 10 mg 10 mg PO DAILY 03/17/23 05/28/23 History tablet (Farxiga) finasteride 5 mg tablet 5 mg PO DAILY 03/17/23 05/28/23 History nitroglycerin 0.4 mg sublingual 0.4 mg buccal NEEDED PRN Chest 03/17/23 05/27/23 History tablet Pain tirzepatide 2.5 mg/0.5 mL 2.5 mg SQ WEEKLY 03/17/23 05/27/23 History subcutaneous pen injector (Mounjaro) sacubitril 24 mg-valsartan 26 mg 1 tab PO BID 30 days #60 tabs 05/28/23 Rx tablet (Entresto) New Prescriptions to Start Prescriptions: sacubitril-valsartan [Entresto] Arnulfo Cortés Allergies Allergy/AdvReac Type Severity Reaction Status Date / Time atorvastatin [From Lipitor] Allergy Mild Verified 05/19/23 13:29 pravastatin [From Pravachol] Allergy Mild Verified 05/19/23 13:29 rosuvastatin [From Crestor] Allergy Mild Verified 05/19/23 13:29 simvastatin [From Zocor] Allergy Mild Verified 05/19/23 13:29 Discharge Plan Disposition Patient Disposition: Home, Self-Care Condition: Good Follow up Plan Follow up with: Kennedy Clark MD [Staff Physician] - 06/04/23 11:00 am Meg Teixeira MD [Referring] - 06/02/23 11:30 am Prescriptions/Medication Reconciliation: New Entresto 24-26 mg tablet 1 tab PO BID 30 Days Qty: 60 0RF Continued carvedilol 6.25 mg tablet 6.25 mg PO BID prasugrel [Effient] 10 mg tablet 10 mg PO DAILY levothyroxine 75 mcg tablet 75 mcg PO DAILY Livalo 2 mg tablet 2 mg PO DAILY pantoprazole [Protonix] 40 mg tablet,delayed release (DR/EC) 40 mg PO DAILY Uloric 40 mg tablet 40 mg PO DAILY metformin 1,000 mg tablet 1,000 mg PO BID aspirin [Adult Low Dose Aspirin] 81 mg tablet,delayed release (DR/EC) 81 mg PO DAILY Farxiga 10 mg tablet 10 mg PO DAILY finasteride 5 mg tablet 5 mg PO DAILY nitroglycerin 0.4 mg tablet, sublingual 0.4 mg buccal NEEDED PRN (Reason: Chest Pain) Patient Comments: DISSOLVE 1 TABLET UNDER TONGUE EVERY 5 MINS FOR UP TO 3 DOSES NEEDED FOR CHEST PAIN. CALL 911 IF PAIN PERSISTS Mounjaro 2.5 mg/0.5 mL pen injector 2.5 mg SQ WEEKLY Discontinued lisinopril-hydrochlorothiazide 20-25 mg tablet 1 tab PO DAILY Other Ambulatory Orders: Basic Metabolic Panel (Routine) Timeframe: 20230604 Facility: [facility] - Location: Laboratory Ordered By: Osmin Watkins Hemoglobin and Hematocrit (Timed) Timeframe: 20230604 Facility: [facility] - Location: Laboratory Ordered By: Osmin Watkins Problem Reconciliation Problems Reviewed?: Yes Patient Discharge Instructions ACTIVITY: Continue current activity DIET: continue same diet Patient Instructions: DI for Cardiac Catheterization, DI for Surgical Site Infection, DI for Moderate Sedation, DI for Post-Surgical Bleeding Providers Primary Care Provider: Provider,Referral Admit Provider: Arnulfo Cortés Attending Provider: Arnulfo Cortés
--- NOTE | 2023-05-28 10:47 | EXP.CARD.CON ---
History of Present Illness History of Present Illness Consult date: 05/28/23 Requesting physician: Arnulfo Cortés Consult reason: post-op evaluation Chief complaint: Chest pain History of present illness: 72-year-old white male with history of CABG 2010, MARCO A 2019, diabetes mellitus, hypertension, hyperlipidemia. Patient had complaints of worsening chest discomfort shortness of breath as an outpatient. 2D echo revealed EF was down to 40% with several diaz revealing hypokinesis. He underwent left heart cath yesterday with significant multivessel disease-please refer to that report for details. He was kept overnight for observation of his renal function and for any arrhythmia. He reports feeling well this morning, no events overnight. His creatinine was up slightly from 1.3-1.7. He has been given 1 bag of normal saline. BP stable, other labs stable. No pain swelling or discomfort at right groin cath site. [facility] Disclaimer: The information contained in this section may have been updated after the patient was seen, as this information can be updated by other users. Medical History Chest pain Gastroesophageal reflux disease Abnormal EKG Right bundle branch block (RBBB) HLD (hyperlipidemia) Pre-op evaluation Diabetes SOB (shortness of breath) HHD (hypertensive heart disease) CAD (coronary artery disease) Surgical History S/P coronary artery bypass graft x 5 Social History Smoking Status: Never smoker alcohol intake: never substance use type: denies use current occupational status: retired Travel in the last 8 weeks: Inside the [facility] Review of Systems Constitutional Constitutional: Denies fatigue and Denies weakness Eyes Eyes: Denies loss of vision ENT Ears, Nose, Mouth, and Throat: Denies hearing loss and Denies vertigo *Cardiovascular Cardiovascular: Reports chest pain, Reports dyspnea and Denies syncope *Respiratory Respiratory: Denies cough and Reports dyspnea *Gastrointestinal Gastrointestinal: Denies change in stool character, Denies nausea and Denies vomiting *Genitourinary Genitourinary: Denies difficulty urinating *Musculoskeletal Musculoskeletal: Denies muscle weakness Integumentary/Breasts Skin/Breast: Denies changing lesions *Neurologic Neurologic: Denies loss of vision, Denies syncope, Denies vertigo and Denies weakness Endocrine Endocrine: Denies fatigue Exam Data for Last 24 hours Vital signs and Labs for Last 24 Hours: Temp Pulse Resp BP Pulse Ox O2 Del Method 97.7 F 68 20 134/65 98 Room Air 05/28/23 08:00 05/28/23 08:00 05/28/23 08:00 05/28/23 08:00 05/28/23 08:00 05/28/23 08:00 Laboratory Results - last 24 hr 05/27/23 09:53: Sodium 141, Potassium 4.2, Chloride 114 H, Carbon Dioxide 19 L, Anion Gap 12.2, BUN 29 H, Creatinine 1.40 H, Estimated Creat Clear 57, Estimated GFR 50 L, Est GFR ( Amer) 60, Glucose 140 H, Calcium 10.2 05/27/23 12:11: Activated Clotting Time 284 H* 05/28/23 05:13: WBC 4.3 L, RBC 3.34 L, Hgb 11.2 L D, Hct 34.2 L, MCV 102.2 H, MCH 33.6 H, MCHC 32.8, RDW 14.2, Plt Count 90 L, MPV 8.5, Neut % (Auto) 60.0, Lymph % (Auto) 25.7, [place] % (Auto) 7.4, Eos % (Auto) 5.7, Baso % (Auto) 1.1, Neut # (Auto) 2.6, Lymph # (Auto) 1.1, [place] # (Auto) 0.3, Eos # (Auto) 0.3, Baso # (Auto) 0.1, Sodium 141, Potassium 4.3, Chloride 114 H, Carbon Dioxide 19 L, Anion Gap 12.3, BUN 28 H, Creatinine 1.70 H D, Estimated Creat Clear 46, Estimated GFR 40 L, Est GFR ( Amer) 48 L, Glucose 179 H D, Calcium 9.5 I & O for Last 24 hours: Intake & Output 05/25/23 05/26/23 05/27/23 05/28/23 23:59 23:59 23:59 23:59 Intake Total 510 / 750 480 / 480 Output Total 0 / 0 Balance 510 / 750 480 / 480 Weight 180 lb 7 oz 180 lb 6.997 oz Constitutional Constitutional: no acute distress and cooperative *Routine HEENT Exam Eye: Present PERRL *Routine Respiratory Exam Respiratory: Present CTA bilaterally; Absent accessory muscle use, wheezes or crackles *Routine Cardiovascular Exam Cardiovascular: Present RRR, Normal S1 and Normal S2; Absent murmur, gallop or rubs Comments: Right groin cath site normal on inspection and palpation *Routine Abdominal Exam Abdominal: Present soft; Absent tenderness *Routine Extremities Exam Extremities: Present pulses intact; Absent cyanosis or edema *Routine Skin Exam Skin: Present intact; Absent erythema or wounds *Routine Neurological Exam Neurological: Present alert and oriented X3 Routine Psychiatric Exam Psychiatric: Present cooperative Meds Home Medications and Allergies Home Medications Medication Instructions Recorded Confirmed Type aspirin 81 mg tablet,delayed 81 mg PO DAILY 07/21/18 05/27/23 History release (Adult Low Dose Aspirin) carvedilol 6.25 mg tablet 6.25 mg PO BID 07/21/18 05/27/23 History febuxostat 40 mg tablet (Uloric) 40 mg PO DAILY 07/21/18 05/27/23 History levothyroxine 75 mcg tablet 75 mcg PO DAILY 07/21/18 05/28/23 History metformin 1,000 mg tablet 1,000 mg PO BID 07/21/18 05/27/23 History pantoprazole 40 mg tablet,delayed 40 mg PO DAILY 07/21/18 05/27/23 History release (Protonix) pitavastatin calcium 2 mg tablet 2 mg PO DAILY 07/21/18 05/27/23 History (Livalo) prasugrel 10 mg tablet (Effient) 10 mg PO DAILY 07/21/18 05/27/23 History dapagliflozin propanediol 10 mg 10 mg PO DAILY 03/17/23 05/28/23 History tablet (Farxiga) finasteride 5 mg tablet 5 mg PO DAILY 03/17/23 05/28/23 History nitroglycerin 0.4 mg sublingual 0.4 mg buccal NEEDED PRN Chest 03/17/23 05/27/23 History tablet Pain tirzepatide 2.5 mg/0.5 mL 2.5 mg SQ WEEKLY 03/17/23 05/27/23 History subcutaneous pen injector (Mounjaro) sacubitril 24 mg-valsartan 26 mg 1 tab PO BID 30 days #60 tabs 05/28/23 Rx tablet (Entresto) New Prescriptions to Start Prescriptions: sacubitril-valsartan [Entresto] Moo,Arnulfo Allergies Allergy/AdvReac Type Severity Reaction Status Date / Time atorvastatin [From Lipitor] Allergy Mild Verified 05/19/23 13:29 pravastatin [From Pravachol] Allergy Mild Verified 05/19/23 13:29 rosuvastatin [From Crestor] Allergy Mild Verified 05/19/23 13:29 simvastatin [From Zocor] Allergy Mild Verified 05/19/23 13:29 Assessment and Plan *Assessment and plan (1) CAD (coronary artery disease): Status: Chronic Qualifiers: Coronary Disease-Associated Artery/Lesion type: [place] artery [place] vs. transplanted heart: [place] heart Associated angina: without angina Qualified Code(s): I25.10 - Atherosclerotic heart disease of [place] coronary artery without angina pectoris Category: Medical Code(s): I25.10 - Atherosclerotic heart disease of [place] coronary artery without angina pectoris (2) Chronic kidney disease: Status: Acute Category: Medical Code(s): N18.9 - Chronic kidney disease, unspecified (3) HFrEF (heart failure with reduced ejection fraction): Status: Acute Category: Medical Code(s): I50.20 - Unspecified systolic (congestive) heart failure Plan MV-CAD s/p PCI 05/27/2023 - CABG 2010, MARCO A 2019, MARCO A 2023 - [facility] Findings: RCA 50?60 with FFR 0.79 (stented) also 40?50 and 60% lesions PDA 60% MCDOWELL to LAD-open Saphenous to left circumflex-open Saphenous to ramus-proximal 90% in-stent stenosis, stented successfully Saphenous RCA-ostial occlusion Right renal artery 10-20% Left renal artery 30-40% EF 40% -Discussed with patient and his in detail that he has severe multivessel disease and needs aggressive risk factor control. -DC home with DAPT, BB, Statin, Entresto. CKD?3 -Baseline creatinine 1.4, elevated to 1.7 here post procedure. He has been given 1 L normal saline -No indication to keep him inpatient, this was only a 20% elevation post procedure. He should continue hydration at home and repeat labs early next week. HFrEF, Ischemic Cardiomyopathy - new dx March of this year with EF 40% - cont BB, Farxiga -Change lisinopril HCTZ to Entresto 24?26 after 36-hour washout -Patient would like to wait on adding Aldactone stating he has frequent medication intolerances and only wants to change 1 at a time -As needed diuretics -Start cardiac rehab -Repeat 2D echo in 3 months to assess improvement in LV function Hypertension -Well-controlled here -Home BP log, goal is <130/80 Hyperlipidemia -Uncertain control, he has labs that his PCP -Patient reports he occasionally skips his statin due to myalgia -We need copy of his outpatient labs, goal LDL goal less than 55. If he is intolerant to statin then we need to add nonstatin therapies. Patient is stable for discharge home with plans as outlined above, he needs follow-up in our office in 2 weeks.
[2023-05-28 11:28] LABS: Hemoglobin A1C 6.1 % (4.0-6.0)
--- NOTE | 2023-06-01 16:26 | CARE MANAGER ---
Attempted post-discharge phone call, no answer. No way to leave message.
== END 2023-05-28 11:23 | disposition home or self-care (01) ==
LOC: 2ND 12:37
PROVIDERS: Internal Medicine; Admitting Provider Internal Medicine Adolescent Medicine; Visit Provider Internal Medicine Adolescent Medicine
DX: R93.1 Abnormal findings on diagnostic imaging of heart and coronary circulation (principal); I25.5 Ischemic cardiomyopathy; Z95.1 Presence of aortocoronary bypass graft; I25.118 Atherosclerotic heart disease of native coronary artery with other forms of angina pectoris; I13.0 Hypertensive heart and chronic kidney disease with heart failure and stage 1 through stage 4 chronic kidney disease, or unspecified chronic kidney disease; E11.22 Type 2 diabetes mellitus with diabetic chronic kidney disease; E78.2 Mixed hyperlipidemia; K21.9 Gastro-esophageal reflux disease without esophagitis; I50.20 Unspecified systolic (congestive) heart failure; N18.30 Chronic kidney disease, stage 3 unspecified; T82.855A Stenosis of coronary artery stent, initial encounter; I15.0 Renovascular hypertension; Y83.1 Surgical operation with implant of artificial internal device as the cause of abnormal reaction of the patient, or of later complication, without mention of misadventure at the time of the procedure; Z79.899 Other long term (current) drug therapy; E78.5 Hyperlipidemia, unspecified; I70.1 Atherosclerosis of renal artery; I77.1 Stricture of artery
CPT/HCPCS: 36252; 36415; 80048; 83036; 85025; 85347; 92928; 93459; 93571; 99152; 99153; C1725; C1760; C1769; C1876; C1894; C9600; G0378; J1644; Q9967

== ENCOUNTER 2023-06-04 12:26 | Outpatient (CLI) | payer MEDICARE, SELFPAY ==
[2023-06-04 12:42] LABS: Hematocrit 39.8 % (42.0-52.0); Hemoglobin 12.8 g/dL (14.1-18.0)
[2023-06-04 13:30] LABS: Anion Gap 12.8 mEq/L (5-15); Blood Urea Nitrogen 32 mg/dl (9-20); Calcium 10.4 mg/dl (8.4-10.2); Carbon Dioxide 19 mmol/L (22.0-30.0); Chloride 116 mmol/L (98-107); Estimated Glomerular Filt Rate 54 ml/min (>60); GFR (African American) 66 ML/MIN (>60); Glucose 158 mg/dl (74-100); Potassium 4.8 mmoL/L (3.5-5.1); Sodium 143 mmol/L (136-145)
== END 2023-06-04 23:59 ==
PROVIDERS: Visit Provider Physician Assistant
DX: I25.10 Atherosclerotic heart disease of native coronary artery without angina pectoris (principal); I11.9 Hypertensive heart disease without heart failure; Z95.1 Presence of aortocoronary bypass graft; E11.9 Type 2 diabetes mellitus without complications; E78.2 Mixed hyperlipidemia; I45.10 Unspecified right bundle-branch block; I35.0 Nonrheumatic aortic (valve) stenosis; K21.9 Gastro-esophageal reflux disease without esophagitis; I42.9 Cardiomyopathy, unspecified; R93.1 Abnormal findings on diagnostic imaging of heart and coronary circulation; N18.9 Chronic kidney disease, unspecified; I50.20 Unspecified systolic (congestive) heart failure
CPT/HCPCS: 36415; 80048; 85014; 85018

== ENCOUNTER 2023-06-23 13:58 | Outpatient (CLI) | payer MEDICARE, SELFPAY ==
[2023-06-23 14:18] LABS: Basophils # 0.1 K/mm3 (0-0.2); Basophils % 1.5 % (0.1-2.0); Eosinophils # 0.3 K/mm3 (0.0-0.4); Eosinophils % 7.7 % (0.1-12.0); Hematocrit 35.8 % (42.0-52.0); Hemoglobin 11.7 g/dL (14.1-18.0); Lymphocytes # 1.1 K/mm3 (0.7-4.5); Lymphocytes % 25.6 % (10-50); Mean Corpuscular HGB Conc 32.6 g/dL (31.8-35.4); Mean Corpuscular Hemoglobin 32.9 pg (27.0-31.2); Mean Corpuscular Volume 100.8 fl (80-94); Mean Platelet Volume 9.1 fl (7.4-10.4); Monocytes # 0.4 K/mm3 (0.1-1.0); Monocytes % 8.9 % (1.7-9.3); Neutrophils # 2.4 K/mm3 (1.8-7.8); Neutrophils % 56.3 % (37.0-80.0); Platelet Count 83 K/mm3 (142-424); Red Blood Count 3.56 M/mm3 (4.60-6.20); Red Cell Distribution Width 14.4 % (11.5-17.5); White Blood Count 4.2 K/mm3 (4.8-10.8)
[2023-06-23 15:13] LABS: Chloride 118 mmol/L (98-107)
[2023-06-23 15:14] LABS: Potassium 5.5 mmoL/L (3.5-5.1); Sodium 143 mmol/L (136-145)
[2023-06-23 15:16] LABS: Alanine Aminotransferase 40 U/L (12-78); Albumin Level 3.9 g/dl (3.5-5.0); Alkaline Phosphatase 110 U/L (38-126); Anion Gap 9.5 mEq/L (5-15); Aspartate Amino Transferase 50 U/L (17-59); Bilirubin,Direct 0.5 mg/dl (0.0-0.4); Bilirubin,Indirect 0.6 mg/dL (0.0-0.9); Bilirubin,Total 1.1 mg/dl (0.2-1.3); Bilirubin,Unconjugated 0.6 mg/dL (0.0-1.1); Blood Urea Nitrogen 39 mg/dl (9-20); Calcium 10.8 mg/dl (8.4-10.2); Carbon Dioxide 21 mmol/L (22.0-30.0); Cholesterol 124 mg/dl (140-200); Estimated Glomerular Filt Rate 40 ml/min (>60); GFR (African American) 48 ML/MIN (>60); Glucose 125 mg/dl (74-100); Triglycerides 99 mg/dl (30-150); VLDL Cholesterol 20 mg/dL (0-40)
[2023-06-23 15:17] LABS: Chol/HDL Ratio 1.9 (1-3.5); HDL Cholesterol 64 mg/dl (40-60); Magnesium 1.9 mg/dl (1.6-2.3); Total Protein,Serum 6.8 g/dl (6.3-8.2)
[2023-06-23 15:33] LABS: Direct LDL Cholesterol 53.76 mg/dL (100-129)
== END 2023-06-23 23:59 | disposition home or self-care (01) ==
LOC: LAB 13:59
PROVIDERS: PCP Pain Medicine Pain Medicine; Visit Provider Internal Medicine
DX: I50.20 Unspecified systolic (congestive) heart failure (principal); N18.9 Chronic kidney disease, unspecified; R93.1 Abnormal findings on diagnostic imaging of heart and coronary circulation; K21.9 Gastro-esophageal reflux disease without esophagitis; I35.0 Nonrheumatic aortic (valve) stenosis; I45.10 Unspecified right bundle-branch block; E78.2 Mixed hyperlipidemia; E11.9 Type 2 diabetes mellitus without complications; Z95.1 Presence of aortocoronary bypass graft; I25.10 Atherosclerotic heart disease of native coronary artery without angina pectoris; I42.8 Other cardiomyopathies; Z79.84 Long term (current) use of oral hypoglycemic drugs
CPT/HCPCS: 36415; 80048; 80061; 80076; 83735; 85025

== ENCOUNTER 2023-07-14 13:10 | Outpatient (CLI) | payer MEDICARE, SELFPAY ==
--- NOTE | 2023-07-14 13:26 | CA_ITS ---
APPROVED REPORT EXAM: Comprehensive 2D, Doppler, and color-flow Echocardiogram Bell Valet: Renetta Alfred, SUZI, RVS Ht: 5 ft 8 in Wt: 172lbs BSA: 1.92 BP: 123/76 mmHg Indications: ABN ECHO 03/2023 CAD, CABG,CM, RBBB, , HFrEF 2D Dimensions IVSd 0.93 cm LVEF (Visual) 55.70 % PWd 0.95 cm LA Volume 71.00 mL LVDd 5.67 cm LA Volume Index 36.20 mL/m2 (M/F) 16-34 LVDs 4.00 cm Left Atrium 4.91 cm M-Mode Dimensions RVDd 2.97 cm (0.9-2.6) LA Diam 4.08 cm (1.9-4.0) LVDd 5.47 cm (3.5-5.7) LVDs 4.26 cm (3.5-5.7) IVSd 1.00 cm (0.6-1.1) PWd 1.21 cm (0.6-1.1) EF (Teich) 44.20% EPSs 1.49 cm FS 22.10% EDV (Teich) 145.60 mL TAPSE 1.30 (<1.7) ESV (Teich) 81.30 mL LV Diastology E Decel Time 210 (160-240 msec) E/A Ratio 0.73 MED A' 10.00 cm/s LAT A' 7.80 cm/s Aortic Valve JASMIN Index 0.56 cm2/m2 AoV Peak August. 339.0 (50-130 cm/s) AO Peak GR. 46.10 mmHg AO Mean GR. 25.20 (<5 mmHg) AO VTI 83.6 (18-25 cm) JASMIN (VTI) 1.10 (2.5-4.5 cm2) Mitral Valve MV A Velocity 103.0 (40-130 cm/s) E/A Ratio 0.73 Pulmonary Valve PV Peak Velocity 95.0 (50-150 cm/s) Tricuspid Valve TR P. Velocity 242.00 cm/s RAP Estimate 10.00 mmHg RVSP 33.40 mmHg Left Ventricle The left ventricle is normal size. Left ventricular systolic function is mildly decreased. There is normal left ventricular wall thickness. There is mild reduction in global systolic function. There is moderate hypokinesis of the mid to distal septal and anteroseptal LV diaz. Grade 1 diastolic dysfunction is present. LVEF is 45%. Right Ventricle The right ventricle is normal size. The right ventricular systolic function is normal. Atria Left atrium is mildly dilated. The right atrium size is normal. There is no Doppler evidence of interatrial shunt. Aortic Valve The aortic valve is moderately thickened. Moderate aortic stenosis. JASMIN by continuity equation is 1.2 cm2. Peak velocity 3.4 m/s. Mean AV gradient is 26 mmHg. Max AV gradient is 46 mmHg. Trace aortic regurgitation. Mitral Valve The mitral valve leaflets are mildly thickened. No evidence of mitral valve stenosis. Mild mitral regurgitation. Tricuspid Valve The tricuspid valve leaflets are thin and pliable. Mild tricuspid regurgitation. RVSP is 20-25 mmHg. Pulmonic Valve The pulmonary valve is normal in structure. Trace pulmonic regurgitation. Great Vessels The aortic root is normal in size. The ascending aorta is not well visualized. IVC is normal in size and collapses >50% with inspiration. Pericardium There is no pericardial effusion. Other Information Study Quality: Fair Conclusion Mild reduction in LV systolic function (LVEF 45%). Mild reduction in global systolic function. There is moderate hypokinesis of the mid to distal septal and anteroseptal LV diaz. Grade 1 diastolic dysfunction. Mild LA dilation. Moderate (JASMIN is 1.2 cm2. Peak velocity 3.4 m/s. Mean AV gradient is 26 mmHg. Max AV gradient is 46 mmHg). Mild MR, mild TR. RVSP is 20-25 mmHg. Electronically signed by : Leticia Matamoros MD 07/18/2023 23:08:13
== END 2023-07-14 23:59 | disposition home or self-care (01) ==
LOC: RT 13:11
PROVIDERS: PCP Pain Medicine Pain Medicine; Visit Provider Internal Medicine
DX: I45.10 Unspecified right bundle-branch block; I25.10 Atherosclerotic heart disease of native coronary artery without angina pectoris; R93.1 Abnormal findings on diagnostic imaging of heart and coronary circulation
CPT/HCPCS: 93306

== ENCOUNTER 2023-12-28 13:33 | Outpatient (CLI) | payer MEDICARE, SELFPAY ==
--- NOTE | 2023-12-28 13:36 | CA_ITS ---
APPROVED REPORT EXAM: Comprehensive 2D, Doppler, and color-flow Echocardiogram Child Welfare Caseworker: SUZI Acevedo, RVS Ht: 5 ft 8 in Wt: 173lbs BSA: 1.92 BP: 129/44 mmHg Indications: Aortic Stenosis, RBBB, CABG, CP, HTN, HLD, DM, Abn EKG,previous EF-45% 2D Dimensions LVDd 5.35 cm M: 4.2 - 5.9 LVEF (Visual) 57.70 % LVDs 3.71 cm M: 2.5 - 4.0 LA Volume 92.60 mL Left Atrium 4.82 cm M: 3.0 - 4.0 LA Volume Index 48.23 mL/m2 (M/F) 16-34 M-Mode Dimensions RVDd 3.16 cm (0.9-2.6) LA Diam 5.24 cm (1.9-4.0) LVDd 6.28 cm (3.5-5.7) LVDs 4.78 cm (3.5-5.7) IVSd 0.80 cm (0.6-1.1) PWd 1.36 cm (0.6-1.1) EF (Teich) 44.50% EPSs 1.03 cm FS 22.50% EDV (Teich) 191.90 mL TAPSE 1.04 (<1.7) ESV (Teich) 106.50 mL LV Diastology E Decel Time 200 (160-240 msec) E/A Ratio 1.88 MED A' 6.00 cm/s LAT A' 7.00 cm/s Aortic Valve JASMIN Index 0.54 cm2/m2 AoV Peak August. 309.0 (50-130 cm/s) AO Peak GR. 38.40 mmHg AO Mean GR. 20.50 (<5 mmHg) AO VTI 79.4 (18-25 cm) JASMIN (VTI) 1.06 (2.5-4.5 cm2) Mitral Valve MV A Velocity 72.0 (40-130 cm/s) E/A Ratio 1.88 Tricuspid Valve TR P. Velocity 268.00 cm/s RAP Estimate 10.00 mmHg RVSP 38.70 mmHg Left Ventricle The left ventricle is mildly dilated. Left ventricular systolic function is mildly decreased. There is increased LV wall thickness. There is moderate hypokinesis of the septal, inferoseptal, and anteroseptal LV diaz. Grade 2 diastolic dysfunction is present. LVEF is 45%. Right Ventricle The right ventricle is mildly dilated. The right ventricular systolic function is mildly hypokinetic. Atria Left atrium is moderately dilated. Right atrium is mildly dilated. There is no Doppler evidence of interatrial shunt. Aortic Valve The aortic valve is moderately thickened. Trace aortic regurgitation. Moderate aortic stenosis. JASMIN by 2D planimetry and continuity equation is 1.2 cm2. Peak velocity 3.3 m/s. Mean AV gradient 22 mmHg. Max AV gradient 42 mmHg. DI=0.44. SVi=37 mL/m2. Mitral Valve The mitral valve leaflets are mildly thickened. No evidence of mitral valve stenosis. Mild to moderate mitral regurgitation. Tricuspid Valve The tricuspid valve leaflets are thin and pliable. Mild tricuspid regurgitation. RVSP is 25-30 mmHg. Pulmonic Valve The pulmonary valve is normal in structure. Trace pulmonic regurgitation. Great Vessels The aortic root is normal in size. The ascending aorta is not well-visualized. IVC is normal in size and collapses >50% with inspiration. Pericardium There is no pericardial effusion. Other Information Study Quality: Fair Conclusion Mild LV dilation with mild reduction in LV function (LVEF 45%). Moderate hypokinesis of the septal, inferoseptal, and anteroseptal LV diaz. Mild RV dilation with mild reduction in RV function. Biatrial dilation. Moderately thickened AV. Moderate (JASMIN by 2D planimetry and continuity equation is 1.2 cm2. Peak velocity 3.3 m/s. Mean AV gradient 22 mmHg. Max AV gradient 42 mmHg. DI=0.44. SVi=37 mL/m2). Mild to moderate MR. Mild TR. RVSP is 25-30 mmHg. Compared to prior study from 07/2023, the LVEF and severity of AAS are overall unchanged. Clinical correlation is required. Serial TTE follow-up is recommended. Electronically signed by : Leticia Matamoros MD 01/03/2024 00:17:10
== END 2023-12-28 23:59 | disposition home or self-care (01) ==
LOC: RT 13:34
PROVIDERS: Visit Provider Internal Medicine
DX: I42.9 Cardiomyopathy, unspecified (principal); I11.0 Hypertensive heart disease with heart failure; I45.10 Unspecified right bundle-branch block
CPT/HCPCS: 93306

== ENCOUNTER 2024-01-12 14:15 | Inpatient (IN) | payer MEDICARE, SELFPAY ==
[2024-01-12] VITALS (9 sets, daily range): BP systolic 96–110; BP diastolic 50–67; PULSE 67–73; RESP 13–20; TEMP 36.5–36.7; O2SAT 96–100; BMI 30.7; BMI 30.4
--- NOTE | 2024-01-12 14:17 | HMH.EDGENADL ---
Discharge Plan Disposition Patient Disposition: Admitted Condition: Serious Clinical Impressions Clinical Impression: CHF (congestive heart failure), Acute on chronic renal failure, Anasarca Discharge ED Provider: Zaid Lui General Adult HPI <ELLIE Aggarwal - Last Filed: 01/12/24 20:25> General Chief complaint: Recheck/Abnormal Lab/Rx Stated complaint: retaining water Time Seen by Provider: 01/12/24 14:17 History of Present Illness HPI narrative: Patient was sent from the cardiology clinic for excessive fluid . Patient has a significant past medical history of atherosclerotic cardiovascular disease status post CABG, status post PCI with stents, chronic kidney disease, Pacheco cirrhosis, diastolic heart failure, aortic stenosis, insulin-dependent type 2 diabetes mellitus, GERD, hyperlipidemia. Patient has progressively put on water weight over the last 8 weeks more abruptly over the last 2. He has been evaluated both by nephrology and hepatology within the last week. He had a follow-up in cardiac clinic today for an echo that he had done at the end of December and they sent him to the emergency department to be admitted . Patient denies chest pain shortness of breath fever chills hemoptysis hematochezia melena hematemesis bleeding. He has never had a paracentesis. Related Data Home Medications ?Medication ?Instructions ?Recorded ?Confirmed carvedilol 6.25 mg tablet 6.25 mg PO BID 07/21/18 01/12/24 febuxostat 40 mg tablet (Uloric) 40 mg PO DAILY 07/21/18 01/12/24 levothyroxine 75 mcg tablet 75 mcg PO DAILY 07/21/18 01/12/24 pantoprazole 40 mg tablet,delayed 40 mg PO DAILY 07/21/18 01/12/24 release (Protonix) pitavastatin calcium 2 mg tablet 2 mg PO DAILY 07/21/18 01/12/24 (Livalo) prasugrel 10 mg tablet (Effient) 10 mg PO DAILY 07/21/18 01/12/24 nitroglycerin 0.4 mg sublingual 0.4 mg buccal NEEDED PRN Chest 03/17/23 01/12/24 tablet Pain tirzepatide 2.5 mg/0.5 mL 2.5 mg SQ WEEKLY 03/17/23 01/12/24 subcutaneous pen injector (Mounjaro) bumetanide 2 mg tablet 2 mg PO DAILY 01/12/24 01/12/24 furosemide 20 mg tablet 20 mg PO BID 01/12/24 01/12/24 metformin 500 mg tablet 500 mg PO DAILY 01/12/24 01/12/24 sacubitril 49 mg-valsartan 51 mg 1 tab PO ONCE 01/12/24 01/12/24 tablet (Entresto) spironolactone 25 mg tablet 25 mg PO DAILY 01/12/24 01/12/24 spironolactone 25 mg tablet 25 mg PO DAILY 01/12/24 01/12/24 Allergies Allergy/AdvReac Type Severity Reaction Status Date / Time atorvastatin [From Lipitor] Allergy Mild Unknown Verified 01/12/24 19:16 allergy reaction pravastatin [From Pravachol] Allergy Mild Unknown Verified 01/12/24 19:16 allergy reaction rosuvastatin [From Crestor] Allergy Mild Unknown Verified 01/12/24 19:16 allergy reaction simvastatin [From Zocor] Allergy Mild Unknown Verified 01/12/24 19:16 allergy reaction PFSH <ELLIE Aggarwal - Last Filed: 01/12/24 20:25> [facility] Disclaimer: The information contained in this section may have been updated after the patient was seen, as this information can be updated by other users. Medical History (Updated 01/12/24 @ 19:35 by Arnulfo Cortés MD) Hypothyroid Chest pain Gastroesophageal reflux disease Abnormal EKG Right bundle branch block (RBBB) HLD (hyperlipidemia) Pre-op evaluation Diabetes SOB (shortness of breath) HHD (hypertensive heart disease) CAD (coronary artery disease) Surgical History Hx of cardiac catheterization Hx of CABG S/P coronary artery bypass graft x 5 Family History Other No significant family history Social History Smoking Status: Never smoker alcohol intake: never substance use type: denies use current occupational status: retired Travel in the last 8 weeks: Inside the [place] Other Medical History Have you received the Flu Vaccine for this season: No Have you received the Pneumonia Vaccine: No <ELLIE Aggarwal - Last Filed: 01/12/24 20:25> ROS Obtained: Yes Systems reviewed as appropriate & no additional complaints except as documented Physical Exam <ELLIE Aggarwal - Last Filed: 01/12/24 20:25> General General appearance: alert and in no apparent distress Respiratory Respiratory exam: Present normal lung sounds bilaterally Cardiovascular Cardiovascular exam: Present regular rate Neurological Exam Neurological exam: Present alert and oriented X3 Medical Decision Making <ELLIE Aggarwal - Last Filed: 01/12/24 20:25> Medical Records Medical records reviewed: Yes I reviewed the patient's medical records. Screening: Per USPSTF and CDC recommendations, given the prevalence of disease in our region, it is our hospital?s policy to screen for HIV and viral Hepatitis for all patients aged 18 and over and those with ongoing risk factors. Clive Inquiry Pt receiving controlled substance: No Vital Signs: 01/12/24 14:29 01/12/24 14:34 01/12/24 14:45 Temperature 97.9 F Temperature Source Oral Pulse Rate 69 69 Pulse Rate [Left Radial] 72 Respiratory Rate 15 Blood Pressure 100/54 L 98/50 L Blood Pressure [Right Arm] 104/53 L Blood Pressure Mean Blood Pressure Mean [Right Arm] 70 02 Sat by Pulse Oximetry 100 98 99 Oxygen Delivery Method Room Air 01/12/24 14:46 01/12/24 15:30 01/12/24 16:01 Temperature Temperature Source Pulse Rate 70 67 73 Pulse Rate [Left Radial] Respiratory Rate Blood Pressure 101/57 L 96/55 L 108/66 L Blood Pressure [Right Arm] Blood Pressure Mean 73 80 Blood Pressure Mean [Right Arm] 02 Sat by Pulse Oximetry 99 96 98 Oxygen Delivery Method Lab Data Lab results reviewed: Yes I reviewed the patient's lab results. Lab Results 01/12/24 14:45: WBC 3.1 L, RBC 2.94 L, Hgb 10.0 L, Hct 29.6 L, MCV 100.6 H, MCH 34.0 H, MCHC 33.8, RDW 14.5, Plt Count 89 L, MPV 8.0, Neut % (Auto) 61.1, Lymph % (Auto) 25.7, [place] % (Auto) 8.4, Eos % (Auto) 3.8, Baso % (Auto) 0.9, Neut # (Auto) 1.9, Lymph # (Auto) 0.8, [place] # (Auto) 0.3, Eos # (Auto) 0.1, Baso # (Auto) 0.0, PT 12.4, INR 1.12 H, APTT 30.7 H, Sodium 142, Potassium 4.2, Chloride 114 H, Carbon Dioxide 17 L, Anion Gap 15.2 H, BUN 66 H, Creatinine 2.40 H, Estimated Creat Clear 36, Estimated GFR 27 L, Est GFR ( Amer) 32 L, Glucose 187 H, Calcium 9.2, Magnesium 2.1, Total Bilirubin 1.1, Direct Bilirubin 0.4, Indirect Bilirubin 0.7, AST 39, ALT 29, Alkaline Phosphatase 93, NT-Pro-B Natriuret Pep 5640 H, Total Protein 6.6, Albumin 3.4 L, Globulin 3.2, Albumin/Globulin Ratio 1.1, Lipase 362 H, HIV 1&2 Antibody Rapid Nonreactive 01/12/24 15:18: SARS-CoV-2 (PCR) Not detected, Influenza A Untype (PCR) Not detected, Influenza Type B (PCR) Not detected 01/12/24 15:30: Lactate 1.8 01/12/24 17:16: Urine Color Yellow, Urine Appearance Clear, Urine pH 5.5, Ur Specific [place] 1.015, Urine Protein Negative, Urine Glucose (UA) 1+, Urine Ketones Negative, Urine Blood Negative, Urine Nitrate Negative, Urine Bilirubin Negative, Urine Urobilinogen 0.2, Ur Leukocyte Esterase Negative, Urine RBC Occasional, Urine WBC Occasional, Ur Squamous Epith Cells Occasional, Urine Bacteria 1+, Hyaline Casts 3-5 01/12/24 14:45 01/12/24 14:45 Orders (Tests/Meds): ED MEDICATIONS Generic Name Dose Route Start Last Admin Trade Name Freq PRN Reason Stop Dose Admin Bumetanide 2 mg 01/12/24 18:24 01/12/24 18:43 Bumetanide 1mg/4ml Vial IV 01/12/24 18:25 2 mg ONCE ONE Administration Carvedilol 6.25 mg 01/12/24 21:00 01/12/24 20:23 Carvedilol 6.25mg Tablet PO 02/11/24 20:59 Not Given BID [facility] Levothyroxine Sodium 75 mcg 01/13/24 09:00 Levothyroxine 75mcg (0.075mg) Tab PO 02/12/24 08:59 DAILY PRAVEENA Non-Formulary Medication 2 mg 01/13/24 09:00 Bumetanide PO 02/12/24 08:59 DAILY PRAVEENA Pantoprazole Sodium 40 mg 01/12/24 21:00 01/12/24 20:19 Pantoprazole 40mg Tablet PO 02/11/24 20:59 40 mg HS PRAVEENA Administration Prasugrel 10 mg 01/13/24 09:00 Prasugrel 10mg Tab PO 02/12/24 08:59 DAILY PRAVEENA Spironolactone 50 mg 01/12/24 18:24 01/12/24 18:43 Spironolactone 25mg Tablet PO 01/12/24 18:25 50 mg ONCE ONE Administration Spironolactone 50 mg 01/13/24 09:00 Spironolactone 25mg Tablet PO 02/12/24 08:59 DAILY PRAVEENA ORDERS Category Date Time Status CT abdomen pelvis wo con Stat Cat Scan 01/12/24 16:01 Completed Cardiology Consult [Consult to Cardiology] [CONS] Cons 01/12/24 16:53 Active Routine POCUS Point of Care (ER Only) Stat Exams 01/12/24 15:06 Completed BNP [NT Pro Brain Natriuretic Pep.] Stat Lab 01/12/24 14:45 Completed Bilirubin,Direct Stat Lab 01/12/24 14:45 Completed Bilirubin,Indirect Stat Lab 01/12/24 14:45 Completed CBC w/Auto Diff [Complete Blood Count Auto Diff] Stat Lab 01/12/24 14:45 Completed CMP [Comprehensive Metabolic Panel] Stat Lab 01/12/24 14:45 Completed Complete Blood Count Auto Diff AMLAB Lab 01/13/24 06:00 Ordered Comprehensive Metabolic Panel AMLAB Lab 01/13/24 06:00 Ordered HIV (1&2) Antibody Rapid Stat Lab 01/12/24 14:45 Completed Hep C Ab with Reflex to RNA Stat Lab 01/12/24 14:45 Received INR [Prothrombin Time INR] Stat Lab 01/12/24 14:45 Completed Lactic Acid Stat Lab 01/12/24 15:30 Completed Lipase Stat Lab 01/12/24 14:45 Completed Lipid Panel AMLAB Lab 01/13/24 06:00 Ordered Magnesium AMLAB Lab 01/13/24 06:00 Ordered Magnesium Stat Lab 01/12/24 14:45 Completed PTT [Activated Partial Thrombo Time] Stat Lab 01/12/24 14:45 Completed Rapid PCR Covid and Flu A/B Stat Lab 01/12/24 15:18 Completed UA [Urinalysis and Microscopic] Stat Lab 01/12/24 17:16 Completed Medical Decision Narrative: In summary patient is a 73-year-old male who presents to the emergency department for evaluation of edema. Patient is initially hypotensive with a systolic blood pressure of 100 and diastolic 54 pulse 69 respiratory rate 15 satting at 100% room air upon arrival, afebrile. Physical exam is remarkable for dependent edema to the hips, body wall edema, distended abdomen but no tenderness. Heart sounds breath sounds are clear and normal. EKG is normal sinus rhythm on the bedside monitor. Differential diagnosis includes heart failure, CHF, renal failure, therapeutic misadventure as patient is on multiple renally cleared medications as well as diuretics etc. Initial workup will be conducted with hematologic labs urinalysis CT scan abdomen pelvis without contrast due to of his renal function. Initial interventions were considered but deferred until after workup is otherwise patient is asymptomatic for any acute complaints. Initial workup reviewed by me shows that his liver enzymes are normal white count is normal patient's BNP is greater than 5000, and my informal interpretation of his CT scan abdomen pelvis shows a small amount of intra-abdominal ascites around the liver but no other acute intra-abdominal processes and a significant amount of anasarca.. Given this I had interactive discussion with Dr. Clark with cardiology regarding patient management and he would like to have the patient admitted for right heart cath tomorrow. Given that I had interactive discussion with hospital medicine and patient has been admitted for further evaluation and care. <Zaid Lui MD - Last Filed: 01/12/24 22:51> Vital Signs: 01/12/24 14:29 01/12/24 14:34 01/12/24 14:45 Temperature 97.9 F Temperature Source Oral Pulse Rate 69 69 Pulse Rate [Left Radial] 72 Respiratory Rate 15 Blood Pressure 100/54 L 98/50 L Blood Pressure [Right Arm] 104/53 L Blood Pressure Mean Blood Pressure Mean [Right Arm] 70 02 Sat by Pulse Oximetry 100 98 99 Oxygen Delivery Method Room Air 01/12/24 14:46 01/12/24 15:30 01/12/24 16:01 Temperature Temperature Source Pulse Rate 70 67 73 Pulse Rate [Left Radial] Respiratory Rate Blood Pressure 101/57 L 96/55 L 108/66 L Blood Pressure [Right Arm] Blood Pressure Mean 73 80 Blood Pressure Mean [Right Arm] 02 Sat by Pulse Oximetry 99 96 98 Oxygen Delivery Method Lab Data Lab Results 01/12/24 14:45: WBC 3.1 L, RBC 2.94 L, Hgb 10.0 L, Hct 29.6 L, MCV 100.6 H, MCH 34.0 H, MCHC 33.8, RDW 14.5, Plt Count 89 L, MPV 8.0, Neut % (Auto) 61.1, Lymph % (Auto) 25.7, [place] % (Auto) 8.4, Eos % (Auto) 3.8, Baso % (Auto) 0.9, Neut # (Auto) 1.9, Lymph # (Auto) 0.8, [place] # (Auto) 0.3, Eos # (Auto) 0.1, Baso # (Auto) 0.0, PT 12.4, INR 1.12 H, APTT 30.7 H, Sodium 142, Potassium 4.2, Chloride 114 H, Carbon Dioxide 17 L, Anion Gap 15.2 H, BUN 66 H, Creatinine 2.40 H, Estimated Creat Clear 36, Estimated GFR 27 L, Est GFR ( Amer) 32 L, Glucose 187 H, Calcium 9.2, Magnesium 2.1, Total Bilirubin 1.1, Direct Bilirubin 0.4, Indirect Bilirubin 0.7, AST 39, ALT 29, Alkaline Phosphatase 93, NT-Pro-B Natriuret Pep 5640 H, Total Protein 6.6, Albumin 3.4 L, Globulin 3.2, Albumin/Globulin Ratio 1.1, Lipase 362 H, HIV 1&2 Antibody Rapid Nonreactive 01/12/24 15:18: SARS-CoV-2 (PCR) Not detected, Influenza A Untype (PCR) Not detected, Influenza Type B (PCR) Not detected 01/12/24 15:30: Lactate 1.8 01/12/24 17:16: Urine Color Yellow, Urine Appearance Clear, Urine pH 5.5, Ur Specific [place] 1.015, Urine Protein Negative, Urine Glucose (UA) 1+, Urine Ketones Negative, Urine Blood Negative, Urine Nitrate Negative, Urine Bilirubin Negative, Urine Urobilinogen 0.2, Ur Leukocyte Esterase Negative, Urine RBC Occasional, Urine WBC Occasional, Ur Squamous Epith Cells Occasional, Urine Bacteria 1+, Hyaline Casts 3-5 Orders (Tests/Meds): ED MEDICATIONS Generic Name Dose Route Start Last Admin Trade Name Freq PRN Reason Stop Dose Admin Bumetanide 2 mg 01/12/24 18:24 01/12/24 18:43 Bumetanide 1mg/4ml Vial IV 01/12/24 18:25 2 mg ONCE ONE Administration Carvedilol 6.25 mg 01/12/24 21:00 01/12/24 20:23 Carvedilol 6.25mg Tablet PO 02/11/24 20:59 Not Given BID PRAVEENA Levothyroxine Sodium 75 mcg 01/13/24 09:00 Levothyroxine 75mcg (0.075mg) Tab PO 02/12/24 08:59 DAILY PRAVEENA Non-Formulary Medication 2 mg 01/13/24 09:00 Bumetanide PO 02/12/24 08:59 DAILY PRAVEENA Pantoprazole Sodium 40 mg 01/12/24 21:00 01/12/24 20:19 Pantoprazole 40mg Tablet PO 02/11/24 20:59 40 mg HS PRAVEENA Administration Prasugrel 10 mg 01/13/24 09:00 Prasugrel 10mg Tab PO 02/12/24 08:59 DAILY PRAVEENA Spironolactone 50 mg 01/12/24 18:24 01/12/24 18:43 Spironolactone 25mg Tablet PO 01/12/24 18:25 50 mg ONCE ONE Administration Spironolactone 50 mg 01/13/24 09:00 Spironolactone 25mg Tablet PO 02/12/24 08:59 DAILY PRAVEENA ORDERS Category Date Time Status CT abdomen pelvis wo con Stat Cat Scan 01/12/24 16:01 Completed Cardiology Consult [Consult to Cardiology] [CONS] Cons 01/12/24 16:53 Active Routine POCUS Point of Care (ER Only) Stat Exams 01/12/24 15:06 Completed BNP [NT Pro Brain Natriuretic Pep.] Stat Lab 01/12/24 14:45 Completed Bilirubin,Direct Stat Lab 01/12/24 14:45 Completed Bilirubin,Indirect Stat Lab 01/12/24 14:45 Completed CBC w/Auto Diff [Complete Blood Count Auto Diff] Stat Lab 01/12/24 14:45 Completed CMP [Comprehensive Metabolic Panel] Stat Lab 01/12/24 14:45 Completed Complete Blood Count Auto Diff AMLAB Lab 01/13/24 06:00 Ordered Comprehensive Metabolic Panel AMLAB Lab 01/13/24 06:00 Ordered HIV (1&2) Antibody Rapid Stat Lab 01/12/24 14:45 Completed Hep C Ab with Reflex to RNA Stat Lab 01/12/24 14:45 Received INR [Prothrombin Time INR] Stat Lab 01/12/24 14:45 Completed Lactic Acid Stat Lab 01/12/24 15:30 Completed Lipase Stat Lab 01/12/24 14:45 Completed Lipid Panel AMLAB Lab 01/13/24 06:00 Ordered Magnesium AMLAB Lab 01/13/24 06:00 Ordered Magnesium Stat Lab 01/12/24 14:45 Completed PTT [Activated Partial Thrombo Time] Stat Lab 01/12/24 14:45 Completed Rapid PCR Covid and Flu A/B Stat Lab 01/12/24 15:18 Completed UA [Urinalysis and Microscopic] Stat Lab 01/12/24 17:16 Completed Medical Decision Narrative: In summary patient is a 73-year-old male who presents to the emergency department for evaluation of edema. Patient is initially hypotensive with a systolic blood pressure of 100 and diastolic 54 pulse 69 respiratory rate 15 satting at 100% room air upon arrival, afebrile. Physical exam is remarkable for dependent edema to the hips, body wall edema, distended abdomen but no tenderness. Heart sounds breath sounds are clear and normal. EKG is normal sinus rhythm on the bedside monitor. Differential diagnosis includes heart failure, CHF, renal failure, therapeutic misadventure as patient is on multiple renally cleared medications as well as diuretics etc. Initial workup will be conducted with hematologic labs urinalysis CT scan abdomen pelvis without contrast due to of his renal function. Initial interventions were considered but deferred until after workup is otherwise patient is asymptomatic for any acute complaints. Initial workup reviewed by me shows that his liver enzymes are normal white count is normal patient's BNP is greater than 5000, and my informal interpretation of his CT scan abdomen pelvis shows a small amount of intra-abdominal ascites around the liver but no other acute intra-abdominal processes and a significant amount of anasarca.. Given this I had interactive discussion with Dr. Clark with cardiology regarding patient management and he would like to have the patient admitted for right heart cath tomorrow. Given that I had interactive discussion with hospital medicine and patient has been admitted for further evaluation and care. I was consulted by the GINA, and we discussed the complexity of the problems being addressed. I approved the treatment and management plan for this patient's care in the Emergency Department, thus performing a substantive portion of the medical decision making. Zaid Lui MD Critical Care <ELLIE Aggarwal - Last Filed: 01/12/24 20:25> Critical Care Time Critical Care Time: No
[2024-01-12 15:23] LABS: Basophils % 0.9 % (0.1-2.0); Eosinophils # 0.1 K/mm3 (0.0-0.4); Eosinophils % 3.8 % (0.1-12.0); Hematocrit 29.6 % (42.0-52.0); Lymphocytes # 0.8 K/mm3 (0.7-4.5); Lymphocytes % 25.7 % (10-50); Mean Corpuscular HGB Conc 33.8 g/dL (31.8-35.4); Mean Corpuscular Volume 100.6 fl (80-94); Monocytes # 0.3 K/mm3 (0.1-1.0); Monocytes % 8.4 % (1.7-9.3); Neutrophils # 1.9 K/mm3 (1.8-7.8); Neutrophils % 61.1 % (37.0-80.0); Platelet Count 89 K/mm3 (142-424); Red Blood Count 2.94 M/mm3 (4.60-6.20); Red Cell Distribution Width 14.5 % (11.5-17.5); White Blood Count 3.1 K/mm3 (4.8-10.8)
[2024-01-12 15:29] LABS: Activated Partial Thrombo Time 30.7 seconds (22.8-30.6)
[2024-01-12 15:30] LABS: Coronavirus 19, PCR Not Detected (NotDetected); Influenza A, PCR Not Detected (NotDetected); Influenza B, PCR Not Detected (NotDetected)
[2024-01-12 15:38] LABS: Albumin Level 3.4 g/dl (3.5-5.0); Chloride 114 mmol/L (98-107); Potassium 4.2 mmoL/L (3.5-5.1); Sodium 142 mmol/L (136-145)
[2024-01-12 15:40] LABS: INR 1.12 (0.9-1.1); Prothrombin Time 12.4 seconds (10.1-12.5)
[2024-01-12 15:41] LABS: Alanine Aminotransferase 29 U/L (12-78); Albumin/Globulin Ratio 1.1 (1.1-1.8); Alkaline Phosphatase 93 U/L (38-126); Anion Gap 15.2 mEq/L (5-15); Aspartate Amino Transferase 39 U/L (17-59); Bilirubin,Direct 0.4 mg/dl (0.0-0.4); Bilirubin,Indirect 0.7 mg/dL (0.0-0.9); Bilirubin,Total 1.1 mg/dl (0.2-1.3); Blood Urea Nitrogen 66 mg/dl (9-20); Carbon Dioxide 17 mmol/L (22.0-30.0); Creatinine Clearance Estimated 36 mL/min (50-200); Estimated Glomerular Filt Rate 27 ml/min (>60); GFR (African American) 32 ML/MIN (>60); Globulin 3.2 g/dL (1.3-3.2); Total Protein,Serum 6.6 g/dl (6.3-8.2)
[2024-01-12 15:42] LABS: Calcium 9.2 mg/dl (8.4-10.2); Glucose 187 mg/dl (74-100)
[2024-01-12 15:50] LABS: NT Pro Brain Natriuretic Pep. 5640 pg/mL (0-125)
[2024-01-12 15:50] LABS: Lactic Acid 1.8 mmol/L (0.7-2.1)
--- NOTE | 2024-01-12 16:01 | CT_ITS ---
PROCEDURE INFORMATION: Exam: CT Abdomen And Pelvis Without Contrast Exam date and time: 01/12/2024 4:17 PM Age: 73 years old Clinical indication: Mass, lump, or swelling; Additional info: Abdominal swelling TECHNIQUE: Imaging protocol: Computed tomography of the abdomen and pelvis without contrast. Radiation optimization: All CT scans at this facility use at least one of these dose optimization techniques: automated exposure control; mA and/or kV adjustment per patient size (includes targeted exams where dose is matched to clinical indication); or iterative reconstruction. COMPARISON: No relevant prior studies available. FINDINGS: Limitations: Lack of intravenous contrast material limits sensitivity in detection and/or characterization of intra-abdominal pathology. Pleural spaces: Small right pleural effusion. Liver: Nodular cirrhotic liver. Gallbladder and biliary ducts: Unremarkable. Pancreas: Severely atrophic pancreas. No evidence of acute pancreatitis. No pancreatic ductal dilation. Spleen: Splenomegaly, measuring 14.5 cm in craniocaudal axis. Punctate calcifications in the spleen compatible with chronic sequelae of prior granulomatous disease. Adrenal glands: Unremarkable. Kidneys and ureters: Unremarkable. Stomach and bowel: No evidence of small bowel obstruction. Few colonic diverticula without evidence of diverticulitis. Appendix: Appendix is visualized and is normal. Intraperitoneal space: No pneumoperitoneum. Vasculature: No abdominal aortic aneurysm. Generalized mesenteric vascular congestion with trace scattered ascites. Lymph nodes: Unremarkable. Urinary bladder: Unremarkable. Reproductive: Prostate is enlarged, measuring approximately 5.5 cm in transverse axis. Bones/joints: Multi-level grade 1 spondylolisthesis in the lumbar spine. No evidence of acute osseous abnormality. Soft tissues: Anasarca. IMPRESSION: 1. No acute findings in the abdomen or pelvis. 2. Cirrhosis. 3. Splenomegaly. 4. Generalized mesenteric vascular congestion with trace scattered ascites. 5. Anasarca. 6. Small right pleural effusion. 7. Enlarged prostate. 8. Additional non-acute ancillary findings are detailed above.
[2024-01-12 16:13] LABS: Magnesium 2.1 mg/dl (1.6-2.3)
[2024-01-12 16:31] LABS: Lipase 362 U/L (23-300)
--- NOTE | 2024-01-12 16:40 | PC.NURSE ---
PA on phone with hospitalist
--- NOTE | 2024-01-12 16:52 | P.HP_ITS ---
History of Present Illness *Admission Date: 01/12/24 *Reason for visit:: Weakness, dyspnea *History of present illness: Mr. Kramer is a 73-year-old male with significant history of CHF, cirrhosis, CKD, history of CABG, status post PCI with stents, type 2 diabetes. He presented to the ER on the recommendation of cardiology for further evaluation of possible CHF exacerbation. Patient has had progressive increase in his weight over the past 8 weeks with increased swelling in his legs. Has been seen by his liver doctor and multiplex operator both expressing concern for his volume overload. On workup in the ER, found to have elevated BNP of 5600, BUN 66, creatinine 2.4, these numbers are comparable to labs obtained at last week. Stable on room air. Significant dyspnea with exertion however. Has increased swelling in his legs with edema all the way up to his lower abdomen. Not responding to p.o. diuresis at home. ER consulted medicine for admission for further evaluation by cardiology and attempted diuresis for his volume overload. On evaluation after arriving to the floor. Patient is in no acute distress. Able to stand with assistance. On room air. Denies any chest pain, nausea, vomiting. Reports having a hard time peeing, thinks that secondary to edema in his region. Is resistant to a catheter at this time. [facility] Disclaimer: The information contained in this section may have been updated after the patient was seen, as this information can be updated by other users. Medical History (Updated 01/12/24 @ 19:35 by Arnulfo Cortés MD) Hypothyroid Chest pain Gastroesophageal reflux disease Abnormal EKG Right bundle branch block (RBBB) HLD (hyperlipidemia) Pre-op evaluation Diabetes SOB (shortness of breath) HHD (hypertensive heart disease) CAD (coronary artery disease) Surgical History Hx of cardiac catheterization Hx of CABG S/P coronary artery bypass graft x 5 Family History Other No significant family history Social History Smoking Status: Never smoker alcohol intake: never substance use type: denies use current occupational status: retired Travel in the last 8 weeks: Inside the [place] Other Medical History Have you received the Flu Vaccine for this season: No Have you received the Pneumonia Vaccine: No Review of Systems Review of Systems Review of systems (narrative): 14 point review of systems performed, pertinent positives and negatives as per [facility] Meds Home Medications and Allergies Home Medications ?Medication ?Instructions ?Recorded ?Confirmed ?Type carvedilol 6.25 mg tablet 6.25 mg PO BID 07/21/18 01/12/24 History febuxostat 40 mg tablet (Uloric) 40 mg PO DAILY 07/21/18 01/12/24 History levothyroxine 75 mcg tablet 75 mcg PO DAILY 07/21/18 01/12/24 History pantoprazole 40 mg tablet,delayed 40 mg PO DAILY 07/21/18 01/12/24 History release (Protonix) pitavastatin calcium 2 mg tablet 2 mg PO DAILY 07/21/18 01/12/24 History (Livalo) prasugrel 10 mg tablet (Effient) 10 mg PO DAILY 07/21/18 01/12/24 History nitroglycerin 0.4 mg sublingual 0.4 mg buccal NEEDED PRN Chest 03/17/23 01/12/24 History tablet Pain tirzepatide 2.5 mg/0.5 mL 2.5 mg SQ WEEKLY 03/17/23 01/12/24 History subcutaneous pen injector (Mounjaro) bumetanide 2 mg tablet 2 mg PO DAILY 01/12/24 01/12/24 History furosemide 20 mg tablet 20 mg PO BID 01/12/24 01/12/24 History metformin 500 mg tablet 500 mg PO DAILY 01/12/24 01/12/24 History sacubitril 49 mg-valsartan 51 mg 1 tab PO ONCE 01/12/24 01/12/24 History tablet (Entresto) spironolactone 25 mg tablet 25 mg PO DAILY 01/12/24 01/12/24 History spironolactone 25 mg tablet 25 mg PO DAILY 01/12/24 01/12/24 History New Prescriptions to Start Prescriptions: Allergies Allergy/AdvReac Type Severity Reaction Status Date / Time atorvastatin [From Lipitor] Allergy Mild Unknown Verified 01/12/24 19:16 allergy reaction pravastatin [From Pravachol] Allergy Mild Unknown Verified 01/12/24 19:16 allergy reaction rosuvastatin [From Crestor] Allergy Mild Unknown Verified 01/12/24 19:16 allergy reaction simvastatin [From Zocor] Allergy Mild Unknown Verified 01/12/24 19:16 allergy reaction Exam Data for Last 24 hours Vital signs and Labs for Last 24 Hours: Temp Pulse Resp BP Pulse Ox O2 Del Method 97.9 F 73 15 108/66 L 98 Room Air 01/12/24 14:34 01/12/24 16:01 01/12/24 14:34 01/12/24 16:01 01/12/24 16:01 01/12/24 14:34 Laboratory Results - last 24 hr 01/12/24 14:45: WBC 3.1 L, RBC 2.94 L, Hgb 10.0 L, Hct 29.6 L, MCV 100.6 H, MCH 34.0 H, MCHC 33.8, RDW 14.5, Plt Count 89 L, MPV 8.0, Neut % (Auto) 61.1, Lymph % (Auto) 25.7, [place] % (Auto) 8.4, Eos % (Auto) 3.8, Baso % (Auto) 0.9, Neut # (Auto) 1.9, Lymph # (Auto) 0.8, [place] # (Auto) 0.3, Eos # (Auto) 0.1, Baso # (Auto) 0.0, PT 12.4, INR 1.12 H, APTT 30.7 H, Sodium 142, Potassium 4.2, Chloride 114 H, Carbon Dioxide 17 L, Anion Gap 15.2 H, BUN 66 H, Creatinine 2.40 H, Estimated Creat Clear 36, Estimated GFR 27 L, Est GFR ( Amer) 32 L, Glucose 187 H, Calcium 9.2, Magnesium 2.1, Total Bilirubin 1.1, Direct Bilirubin 0.4, Indirect Bilirubin 0.7, AST 39, ALT 29, Alkaline Phosphatase 93, NT-Pro-B Natriuret Pep 5640 H, Total Protein 6.6, Albumin 3.4 L, Globulin 3.2, Albumin/Globulin Ratio 1.1, Lipase 362 H 01/12/24 15:18: SARS-CoV-2 (PCR) Not detected, Influenza A Untype (PCR) Not detected, Influenza Type B (PCR) Not detected 01/12/24 15:30: Lactate 1.8 I & O for Last 24 hours: Intake & Output 01/09/24 01/10/24 01/11/24 01/12/24 23:59 22:59 23:59 23:59 Weight 91.626 kg Constitutional Constitutional: no acute distress, obese, chronically ill appearing and cooperative *Routine HEENT Exam Head: Present normocephalic Eye: Present EOMI and PERRL ENT: Present mucous membranes moist *Routine Neck Exam Neck: Present supple; Absent lymphadenopathy *Routine Respiratory Exam Respiratory: Present CTA bilaterally; Absent rhonchi, wheezes or crackles *Routine Cardiovascular Exam Cardiovascular: Present RRR and murmur *Routine Abdominal Exam Abdominal: Present soft, normoactive bowel sounds and distended; Absent tenderness *Routine Rectal Exam Rectal:: deferred *Routine Genitalia Exam Genitalia:: deferred *Routine Extremities Exam Extremities: Present edema (3+ edema to the knees, 2+ upper thighs, 1+ in lower abdomen); Absent cyanosis or clubbing *Routine Skin Exam Skin: Present intact and warm; Absent cyanosis, erythema or rash Comments: Small abrasion proximal left lower extremity *Routine Neurological Exam Neurological: Present alert, oriented X3 and moving all extremities; Absent altered mental status Assessment and Plan *Assessment and plan (1) CHF (congestive heart failure): Status: Acute Category: Medical Code(s): I50.9 - Heart failure, unspecified (2) HFrEF (heart failure with reduced ejection fraction): Status: Acute Category: Medical Code(s): I50.20 - Unspecified systolic (congestive) heart failure (3) Chronic kidney disease: Status: Acute Qualifiers: Chronic kidney disease stage: unspecified stage Qualified Code(s): N18.9 - Chronic kidney disease, unspecified Category: Medical Code(s): N18.9 - Chronic kidney disease, unspecified (4) Anasarca: Status: Acute Category: Medical Code(s): R60.1 - Generalized edema (5) Diabetes: Status: Chronic Qualifiers: Diabetes mellitus complication status: without complication Diabetes mellitus jail insulin use: without laborer marine terminal use Diabetes mellitus type: type 2 Qualified Code(s): E11.9 - Type 2 diabetes mellitus without comp lications Category: Medical Code(s): E11.9 - Type 2 diabetes mellitus without complications (6) S/P coronary artery bypass graft x 5: Status: Chronic Category: Surgical Code(s): Z95.1 - Presence of aortocoronary bypass graft (7) CAD (coronary artery disease): Status: Chronic Qualifiers: Associated angina: without angina Coronary Disease-Associated Artery/Lesion type: [place] artery [place] vs. transplanted heart: [place] heart Qualified Code(s): I25.10 - Atherosclerotic heart disease of [place] coronary artery without angina pectoris Category: Medical Code(s): I25.10 - Atherosclerotic heart disease of [place] coronary artery without angina pectoris (8) HHD (hypertensive heart disease): Status: Chronic Qualifiers: Heart failure presence: without heart failure Qualified Code(s): I11.9 - Hypertensive heart disease without heart failure Category: Medical Code(s): I11.9 - Hypertensive heart disease without heart failure (9) Hypothyroid: Status: Acute Category: Medical Code(s): E03.9 - Hypothyroidism, unspecified (10) Cirrhosis: Status: Acute Category: Medical Code(s): K74.60 - Unspecified cirrhosis of liver Plan 73-year-old male with multiple complex comorbidities including CKD, [place] cirrhosis, CHF, diabetes. Presented to the ER with worsening shortness of breath and swelling in his legs. Discussed case with ER physician, request admission for diuresis, cardiology eval, consideration for right heart cath. I agreed to admit for further management. Stable on room air. Monitoring overnight. N.p.o. for cardiology evaluation in the morning. Problems addressed as follows: Acute CHF exacerbation CAD History of CABG HLD -Taken for cath on 05/27/23. Tolerated procedure well. Received 2 stents, 1 to saphenous graft and 1 to RCA. - Continue prasugrel 10 mg. Continue carvedilol 6.25 mg twice daily,, spironolactone 50 mg daily - Cardiology consulted, will evaluate the patient in the morning. N.p.o. at midnight in anticipation of possible procedure (right heart cath) in the morning. - Echo obtained 12/28/23 showing essentially stable EF at 45% with moderate aortic stenosis compared to echo from 07/2023. - Will administer 2 mg Bumex IV x 1 on admission along with 50 mg spironolactone. Continue 2 mg Bumex twice daily starting in the morning - Kidney function elevated with BUN 66, creatinine 2.4. Concern for renal congestion versus possibly cardiorenal syndrome versus hepatorenal syndrome. Will monitor kidney function closely with repeat CMP, magnesium, CBC ordered for the morning. Magnesium 2.1, potassium 4.2 - BNP elevated at 5640. Which is somewhat lower than BNP obtained at last week of approximately 7000 -Personally reviewed CT of abdomen pelvis, no effusions or lower lobe consolidation in his lungs. Does have ascites and anasarca of abdomen. Renal cortices appear thin AB on CKD: - Creatinine 1.7 and June. 2.4 recently at . Concern his CKD is worsening. Recently saw nephrology a week ago. Repeat CBC, CMP, magnesium ordered for the morning. Hypothyroid: Continue levothyroxine 75 mcg daily. TSH pending in the morning.t week. Diabetes: A1c pending in the morning, continue sliding scale insulin with fingersticks ACHS. GERD: Continue protonix 40mg daily Full code Diabetic diet, n.p.o. at midnight
--- NOTE | 2024-01-12 17:11 | PC.NURSE ---
call made to rooming house keeper for bed placement
[2024-01-12 17:23] LABS: Microscopic, Urine URINE MICROSCOPIC (MICROSCOPIC)
--- NOTE | 2024-01-12 17:23 | PC.NURSE ---
report called to savi on second floor
[2024-01-12 17:27] LABS: Appearance,Urine CLEAR (Clear); Bilirubin,Urine Negative (Negative); Blood, Urine Negative (Negative); Color,Urine YELLOW (Yellow); Glucose,Urine (UA) 1+ (Negative); Ketones,Urine Negative (Negative); Leukocyte Esterase,Urine Negative (Negative); Nitrate,Urine Negative (Negative); PH,Urine 5.5 (5.0-8.5); Protein,Urine Negative (Negative); Specific Gravity, Urine 1.015 (1.005-1.030); Urobilinogen,Urine 0.2 EU/dl (0.2)
[2024-01-12 17:37] LABS: HIV (1&2) Antibody Rapid NONREACTIVE (NONREACTIVE)
[2024-01-12 17:53] LABS: Bacteria,Urine 1+ /lpf; RBC,Urine Occasional #/hpf (0-3); Squamous Epithelial Cell,Urine Occasional #/hpf (0-5); WBC,Urine Occasional #/hpf (0-3)
--- NOTE | 2024-01-12 17:54 | PC.NURSE ---
arrived by w/c from ED
[2024-01-12] MEDS: SPIRONOLACTONE 25MG TABLET 50 MG PO (18:43)
[2024-01-12] MEDS: BUMETANIDE 1MG/4ML VIAL 2 MG IV (18:43)
[2024-01-12] MEDS: PANTOPRAZOLE 40MG TABLET 40 MG PO (20:19)
[2024-01-12 21:22] LABS: POC Glucose,Bedside 169 (70-110)
[2024-01-12] MEDS: ACETAMINOPHEN 500MG TAB 500 MG PO (23:43)
[2024-01-13] VITALS (9 sets, daily range): BP systolic 82–114; BP diastolic 44–62; PULSE 70–82; RESP 16–18; TEMP 36.5–37.3; O2SAT 97–100; BMI 31.0
[2024-01-13] MEDS: ACETAMINOPHEN 500MG TAB 500 MG PO (05:47)
[2024-01-13 06:00] LABS: POC Glucose,Bedside 116 (70-110)
--- NOTE | 2024-01-13 07:33 | P.PN_ITS ---
Subjective *Date: 01/13/24 *Time: 15:29 Interval history: Patient states he is feeling little bit better with less swelling in his abdomen. Urinating adequately. -1.4 L since admission. Denies chest pain or shortness of breath. Ambulating independently. Kidney function remained stable but bad. Tolerating p.o. intake. Medical Exam Vital signs and Labs for Last 24 Hours: Vital Signs Temp Pulse Pulse Resp BP BP Pulse Ox 01/13/24 06:47 01/13/24 05:00 01/13/24 04:44 99/58 L 01/13/24 04:00 70 01/13/24 04:00 98.4 F 71 16 94/49 L 97 01/13/24 02:58 01/13/24 01:00 01/13/24 00:00 70 01/13/24 00:00 98.2 F 70 16 114/62 98 01/12/24 22:52 01/12/24 21:00 01/12/24 20:23 01/12/24 20:00 70 01/12/24 20:00 98.1 F 72 18 108/59 L 100 01/12/24 18:45 01/12/24 18:00 97.7 F 70 20 110/67 100 01/12/24 17:53 98.0 F 73 13 108/66 L 01/12/24 16:01 73 108/66 L 98 01/12/24 15:30 67 96/55 L 96 01/12/24 14:46 70 101/57 L 99 01/12/24 14:45 69 98/50 L 99 01/12/24 14:34 97.9 F 72 15 104/53 L 98 01/12/24 14:29 69 100/54 L 100 O2 Del Method 01/13/24 06:47 Room Air 01/13/24 05:00 Room Air 01/13/24 04:44 01/13/24 04:00 01/13/24 04:00 Room Air 01/13/24 02:58 Room Air 01/13/24 01:00 Room Air 01/13/24 00:00 01/13/24 00:00 Room Air 01/12/24 22:52 Room Air 01/12/24 21:00 Room Air 01/12/24 20:23 Room Air 01/12/24 20:00 01/12/24 20:00 Room Air 01/12/24 18:45 Room Air 01/12/24 18:00 Room Air 01/12/24 17:53 Room Air 01/12/24 16:01 01/12/24 15:30 01/12/24 14:46 01/12/24 14:45 01/12/24 14:34 Room Air 01/12/24 14:29 Intake and Output 01/12/24 01/12/24 01/13/24 15:59 23:59 07:59 Output Total 800 / 800 600 / 600 Balance -800 / -800 -600 / -600 Output: Output, Urine Amount 800 / 800 600 / 600 Other: Number of Voids 1 Number of Unmeasured Voids 1 1 Number of Bowel Movements 1 Weight 91.626 kg 90.718 kg 92.85 kg Patient Weight 01/13/24 23:59 Weight 92.85 kg Laboratory Results - last 24 hr 01/12/24 14:45: WBC 3.1 L, RBC 2.94 L, Hgb 10.0 L, Hct 29.6 L, MCV 100.6 H, MCH 34.0 H, MCHC 33.8, RDW 14.5, Plt Count 89 L, MPV 8.0, Neut % (Auto) 61.1, Lymph % (Auto) 25.7, [place] % (Auto) 8.4, Eos % (Auto) 3.8, Baso % (Auto) 0.9, Neut # (Auto) 1.9, Lymph # (Auto) 0.8, [place] # (Auto) 0.3, Eos # (Auto) 0.1, Baso # (Auto) 0.0, PT 12.4, INR 1.12 H, APTT 30.7 H, Sodium 142, Potassium 4.2, Chloride 114 H, Carbon Dioxide 17 L, Anion Gap 15.2 H, BUN 66 H, Creatinine 2.40 H, Estimated Creat Clear 36, Estimated GFR 27 L, Est GFR ( Amer) 32 L, Glucose 187 H, Calcium 9.2, Magnesium 2.1, Total Bilirubin 1.1, Direct Bilirubin 0.4, Indirect Bilirubin 0.7, AST 39, ALT 29, Alkaline Phosphatase 93, NT-Pro-B Natriuret Pep 5640 H, Total Protein 6.6, Albumin 3.4 L, Globulin 3.2, Albumin/Globulin Ratio 1.1, Lipase 362 H, HIV 1&2 Antibody Rapid Nonreactive 01/12/24 15:18: SARS-CoV-2 (PCR) Not detected, Influenza A Untype (PCR) Not detected, Influenza Type B (PCR) Not detected 01/12/24 15:30: Lactate 1.8 01/12/24 17:16: Urine Color Yellow, Urine Appearance Clear, Urine pH 5.5, Ur Specific [place] 1.015, Urine Protein Negative, Urine Glucose (UA) 1+, Urine Ketones Negative, Urine Blood Negative, Urine Nitrate Negative, Urine Bilirubin Negative, Urine Urobilinogen 0.2, Ur Leukocyte Esterase Negative, Urine RBC Occasional, Urine WBC Occasional, Ur Squamous Epith Cells Occasional, Urine Bacteria 1+, Hyaline Casts 3-5 01/12/24 21:02: POC Glucose 169 H 01/13/24 05:51: POC Glucose 116 H I & O for Labs for Last 24 Hours: Intake & Output 01/10/24 01/11/24 01/12/24 01/13/24 22:59 23:59 23:59 23:59 Output Total 800 / 800 600 / 600 Balance -800 / -800 -600 / -600 Weight 90.718 kg 92.85 kg Constitutional: Present no acute distress, obese, chronically ill appearing and cooperative Head: Present atraumatic and normocephalic ENT: Present normal exam Respiratory: Present normal respiratory effort; Absent rhonchi, wheezes or crackles Cardiac: Present Reg Rate and Rhythm GI: Present soft, distention and normal bowel sounds; Absent tenderness Extremities: Present normal inspection and full ROM Comment:: 3+ edema to his knees, 2+ in thighs. Improved in abdomen Skin: Present intact; Absent erythema Neuro: Present Grossly Intact, alert, awake, oriented x 3 and moves all extremities Assessment and Plan *Assessment and plan (1) CHF (congestive heart failure): Status: Acute Category: Medical Code(s): I50.9 - Heart failure, unspecified (2) HFrEF (heart failure with reduced ejection fraction): Status: Acute Category: Medical Code(s): I50.20 - Unspecified systolic (congestive) heart failure (3) Chronic kidney disease: Status: Acute Qualifiers: Chronic kidney disease stage: unspecified stage Qualified Code(s): N18.9 - Chronic kidney disease, unspecified Category: Medical Code(s): N18.9 - Chronic kidney disease, unspecified (4) Anasarca: Status: Acute Category: Medical Code(s): R60.1 - Generalized edema (5) Diabetes: Status: Chronic Qualifiers: Diabetes mellitus type: type 2 Diabetes mellitus shelter insulin use: without middle or intermediate school principal use Diabetes mellitus complication status: without complication Qualified Code(s): E11.9 - Type 2 diabetes mellitus without complications Category: Medical Code(s): E11.9 - Type 2 diabetes mellitus without complications (6) S/P coronary artery bypass graft x 5: Status: Chronic Category: Surgical Code(s): Z95.1 - Presence of aortocoronary bypass graft (7) CAD (coronary artery disease): Status: Chronic Qualifiers: Coronary Disease-Associated Artery/Lesion type: [place] artery [place] vs. transplanted heart: [place] heart Associated angina: without angina Qualified Code(s): I25.10 - Atherosclerotic heart disease of [place] coronary artery without angina pectoris Category: Medical Code(s): I25.10 - Atherosclerotic heart disease of [place] coronary artery without angina pectoris (8) HHD (hypertensive heart disease): Status: Chronic Qualifiers: Heart failure presence: without heart failure Qualified Code(s): I11.9 - Hypertensive heart disease without heart failure Category: Medical Code(s): I11.9 - Hypertensive heart disease without heart failure (9) Hypothyroid: Status: Acute Category: Medical Code(s): E03.9 - Hypothyroidism, unspecified (10) Cirrhosis: Status: Acute Qualifiers: Hepatic cirrhosis type: unspecified hepatic cirrhosis Ascites presence: with ascites Qualified Code(s): K74.60 - Unspecified cirrhosis of liver; R18.8 - Other ascites Category: Medical Code(s): K74.60 - Unspecified cirrhosis of liver Plan 73-year-old male with multiple complex comorbidities including CKD, [place] cirrhosis, CHF, diabetes. Presented to the ER with worsening shortness of breath and swelling in his legs. Discussed case with ER physician, request admission for diuresis, cardiology eval, consideration for right heart cath. I agreed to admit for further management. Stable on room air. Having response to diuresis, needs continued management with further diuresis. Problems addressed as follows: Acute CHF exacerbation CAD History of CABG HLD -Discussed case with cardiology this morning, recommend continue aggressive diuresis. Continue Bumex and spironolactone while monitoring renal function. - Continue prasugrel 10 mg. Continue carvedilol 6.25 mg twice daily,, spironolactone 50 mg daily - Echo obtained 12/28/23 showing essentially stable EF at 45% with moderate aortic stenosis compared to echo from 07/2023. - Continue 2 mg Bumex twice daily with spironolactone 50 mg daily -Kidney function stable with BUN 65, creatinine 2.5. Concern for renal congestion versus possibly cardiorenal syndrome versus hepatorenal syndrome. Will monitor kidney function closely with repeat CMP, magnesium, CBC ordered for the morning. Magnesium 2.0, potassium 4.6 - BNP elevated at 5640. Which is somewhat lower than BNP obtained at last week of approximately 7000 AB on CKD: - Creatinine 1.7 and [place]. 2.4 recently at . Concern his CKD is worsening. Recently saw nephrology a week ago. Repeat CBC, CMP, magnesium ordered for the morning. Hypothyroid: Continue levothyroxine 75 mcg daily. TSH 3.9 Diabetes: A1c normal at less than 6. continue sliding scale insulin with fingersticks ACHS. GERD: Continue protonix 40mg daily Full code Diabetic diet
[2024-01-13 07:42] LABS: Alanine Aminotransferase 28 U/L (12-78); Albumin Level 3.6 g/dl (3.5-5.0); Alkaline Phosphatase 97 U/L (38-126); Anion Gap 15.6 mEq/L (5-15); Aspartate Amino Transferase 38 U/L (17-59); Bilirubin,Total 1.3 mg/dl (0.2-1.3); Blood Urea Nitrogen 65 mg/dl (9-20); Calcium 9.4 mg/dl (8.4-10.2); Carbon Dioxide 20 mmol/L (22.0-30.0); Chloride 112 mmol/L (98-107); Chol/HDL Ratio 2.7 (1-3.5); Cholesterol 117 mg/dl (140-200); Creatinine Clearance Estimated 35 mL/min (50-200); Estimated Glomerular Filt Rate 26 ml/min (>60); GFR (African American) 31 ML/MIN (>60); Globulin 3.5 g/dL (1.3-3.2); Glucose 104 mg/dl (74-100); HDL Cholesterol 44 mg/dl (40-60); Potassium 4.6 mmoL/L (3.5-5.1); Sodium 143 mmol/L (136-145); Total Protein,Serum 7.1 g/dl (6.3-8.2); Triglycerides 83 mg/dl (30-150); VLDL Cholesterol 17 mg/dL (0-40)
[2024-01-13 07:53] LABS: Direct LDL Cholesterol 48.19 mg/dL (100-129)
[2024-01-13 08:04] LABS: Basophils % 0.7 % (0.1-2.0); Eosinophils # 0.2 K/mm3 (0.0-0.4); Eosinophils % 3.1 % (0.1-12.0); Hematocrit 31.9 % (42.0-52.0); Lymphocytes # 1.3 K/mm3 (0.7-4.5); Lymphocytes % 25.4 % (10-50); Mean Corpuscular HGB Conc 34.5 g/dL (31.8-35.4); Mean Corpuscular Hemoglobin 35.4 pg (27.0-31.2); Mean Corpuscular Volume 102.7 fl (80-94); Mean Platelet Volume 8.5 fl (7.4-10.4); Monocytes # 0.5 K/mm3 (0.1-1.0); Monocytes % 9.8 % (1.7-9.3); Neutrophils % 61.1 % (37.0-80.0); Platelet Count 101 K/mm3 (142-424); Red Cell Distribution Width 14.3 % (11.5-17.5)
--- NOTE | 2024-01-13 08:07 | HMH.PHAINT1 ---
Pharmacy Intervention Comments: Home medication list verified using list from outpatient pharmacy
[2024-01-13 08:13] LABS: Thyroid Stimulating Hormone 3.89 uIU/mL (0.465-4.68)
[2024-01-13] MEDS: PRASUGREL 10MG TAB 10 MG PO (09:36)
[2024-01-13] MEDS: LEVOTHYROXINE 75MCG (0.075MG) TAB 75 MCG PO (09:36)
[2024-01-13 09:39] LABS: HCV Ab Non Reactive (Non Reactive)
[2024-01-13] MEDS: SPIRONOLACTONE 25MG TABLET 50 MG PO (09:39)
[2024-01-13] MEDS: BUMETANIDE 1 MG TABLET 2 MG PO (09:39)
--- NOTE | 2024-01-13 10:23 | P.CONCA_ITS ---
History of Present Illness History of Present Illness Consult date: 01/13/24 Requesting physician: Arnulfo Cortés Consult reason: congestive heart failure and shortness of breath Chief complaint: shortness of breath, lower extremity and scrotal edema Additional Medical History:: 1. CAD A. History of CABG in 2010 B. History of drug-eluting stent placement in January 2020 C. MARCO A to SVG to ramus and MARCO A to RCA in 2023 2. Ischemic cardiomyopathy/HFrEF with EF 45%, diagnosed 05/2023 A. Echocardiogram, 12/2023, EF 45% with moderate hypokinesis of the septal, inferoseptal and anteroseptal LV diaz. Moderate AAS (1.2 cm?), mild to moderate MR, mild TR, RVSP 25-30 mmHg 3. Diabetes mellitus 4. Cirrhosis 5. CKD 6. Abnormal EKG with right bundle branch block 7. Carotid artery stenosis, less than 20% in 2019 8. Hyperlipidemia 9. Hypertension History of present illness: 73-year-old white male seen in the office yesterday with increasing shortness of breath associated with increasing lower extremity edema and even scrotal edema admitted for congestive heart failure. Patient has diuresed well overnight with improvement in lower extremity edema and scrotal edema but still present. Patient denies any chest pain, pressure or tightness. [facility] Disclaimer: The information contained in this section may have been updated after the patient was seen, as this information can be updated by other users. Medical History (Updated 01/13/24 @ 10:30 by ELLIE Balderas) Hypothyroid Chest pain Gastroesophageal reflux disease Abnormal EKG Right bundle branch block (RBBB) HLD (hyperlipidemia) Pre-op evaluation Diabetes SOB (shortness of breath) HHD (hypertensive heart disease) CAD (coronary artery disease) Surgical History Hx of cardiac catheterization Hx of CABG S/P coronary artery bypass graft x 5 Family History Other No significant family history Social History Smoking Status: Never smoker alcohol intake: never substance use type: denies use current occupational status: retired Travel in the last 8 weeks: Inside the [place] Review of Systems Review of Systems Review of systems:: pertinent systems reviewed and negative unless documented below *Cardiovascular Cardiovascular: Denies chest pain, Reports dyspnea, Reports dyspnea on exertion and Reports leg edema *Respiratory Respiratory: Reports dyspnea and Reports dyspnea on exertion Exam Data for Last 24 hours Vital signs and Labs for Last 24 Hours: Temp Pulse Resp BP Pulse Ox O2 Del Method 99.1 F 70 18 82/46 L 97 Room Air 01/13/24 08:00 01/13/24 08:00 01/13/24 08:00 01/13/24 08:00 01/13/24 08:00 01/13/24 08:00 Laboratory Results - last 24 hr 01/12/24 14:45: WBC 3.1 L, RBC 2.94 L, Hgb 10.0 L, Hct 29.6 L, MCV 100.6 H, MCH 34.0 H, MCHC 33.8, RDW 14.5, Plt Count 89 L, MPV 8.0, Neut % (Auto) 61.1, Lymph % (Auto) 25.7, [place] % (Auto) 8.4, Eos % (Auto) 3.8, Baso % (Auto) 0.9, Neut # (Auto) 1.9, Lymph # (Auto) 0.8, [place] # (Auto) 0.3, Eos # (Auto) 0.1, Baso # (Auto) 0.0, PT 12.4, INR 1.12 H, APTT 30.7 H, Sodium 142, Potassium 4.2, Chloride 114 H, Carbon Dioxide 17 L, Anion Gap 15.2 H, BUN 66 H, Creatinine 2.40 H, Estimated Creat Clear 36, Estimated GFR 27 L, Est GFR ( Amer) 32 L, Glucose 187 H, Calcium 9.2, Magnesium 2.1, Total Bilirubin 1.1, Direct Bilirubin 0.4, Indirect Bilirubin 0.7, AST 39, ALT 29, Alkaline Phosphatase 93, NT-Pro-B Natriuret Pep 5640 H, Total Protein 6.6, Albumin 3.4 L, Globulin 3.2, Albumin/Globulin Ratio 1.1, Lipase 362 H, Hepatitis C Antibody Non reactive, HIV 1&2 Antibody Rapid Nonreactive 01/12/24 15:18: SARS-CoV-2 (PCR) Not detected, Influenza A Untype (PCR) Not detected, Influenza Type B (PCR) Not detected 01/12/24 15:30: Lactate 1.8 01/12/24 17:16: Urine Color Yellow, Urine Appearance Clear, Urine pH 5.5, Ur Specific [place] 1.015, Urine Protein Negative, Urine Glucose (UA) 1+, Urine Ketones Negative, Urine Blood Negative, Urine Nitrate Negative, Urine Bilirubin Negative, Urine Urobilinogen 0.2, Ur Leukocyte Esterase Negative, Urine RBC Occasional, Urine WBC Occasional, Ur Squamous Epith Cells Occasional, Urine Bacteria 1+, Hyaline Casts 3-5 01/12/24 21:02: POC Glucose 169 H 01/13/24 05:51: POC Glucose 116 H 01/13/24 06:52: WBC 5.0 D, RBC 3.10 L, Hgb 11.0 L, Hct 31.9 L, MCV 102.7 H, MCH 35.4 H, MCHC 34.5, RDW 14.3, Plt Count 101 L, MPV 8.5, Neut % (Auto) 61.1, Lymph % (Auto) 25.4, [place] % (Auto) 9.8 H, Eos % (Auto) 3.1, Baso % (Auto) 0.7, Neut # (Auto) 3.0, Lymph # (Auto) 1.3, [place] # (Auto) 0.5, Eos # (Auto) 0.2, Baso # (Auto) 0.0, Sodium 143, Potassium 4.6, Chloride 112 H, Carbon Dioxide 20 L, Anion Gap 15.6 H, BUN 65 H, Creatinine 2.50 H, Estimated Creat Clear 35, Estimated GFR 26 L, Est GFR ( Amer) 31 L, Glucose 104 H D, Hemoglobin A1c 5.0, Calcium 9.4, Magnesium 2.0, Total Bilirubin 1.3, AST 38, ALT 28, Alkaline Phosphatase 97, Total Protein 7.1, Albumin 3.6, Globulin 3.5 H, Albumin/Globulin Ratio 1.0 L, Triglycerides 83, Cholesterol 117 L, LDL Cholesterol Direct 48.19 L , VLDL Cholesterol 17, HDL Cholesterol 44, Cholesterol/HDL Ratio 2.7, TSH 3.89 I & O for Last 24 hours: Intake & Output 01/10/24 01/11/24 01/12/24 01/13/24 10:59 11:59 11:59 11:59 Output Total 1400 / 1400 Balance -1400 / -1400 Weight 204 lb 11.2 oz Constitutional Constitutional: no acute distress *Routine Respiratory Exam Respiratory: Present CTA bilaterally *Routine Cardiovascular Exam Cardiovascular: Present RRR and murmur; Absent gallop or rubs *Routine Exam Scrotal: Present swelling *Routine Extremities Exam Extremities: Present edema Meds Home Medications and Allergies Home Medications ?Medication ?Instructions ?Recorded ?Confirmed ?Type carvedilol 6.25 mg tablet 6.25 mg PO BID 07/21/18 01/12/24 History febuxostat 40 mg tablet (Uloric) 40 mg PO DAILY 07/21/18 01/12/24 History levothyroxine 75 mcg tablet 75 mcg PO DAILY 07/21/18 01/12/24 History pantoprazole 40 mg tablet,delayed 40 mg PO DAILY 07/21/18 01/12/24 History release (Protonix) pitavastatin calcium 2 mg tablet 2 mg PO DAILY 07/21/18 01/12/24 History (Livalo) prasugrel 10 mg tablet (Effient) 10 mg PO DAILY 07/21/18 01/12/24 History nitroglycerin 0.4 mg sublingual 0.4 mg buccal NEEDED PRN Chest 03/17/23 01/12/24 History tablet Pain tirzepatide 2.5 mg/0.5 mL 2.5 mg SQ WEEKLY 03/17/23 01/12/24 History subcutaneous pen injector (Mounjaro) bumetanide 2 mg tablet 2 mg PO BID 01/12/24 01/13/24 History furosemide 20 mg tablet 20 mg PO BID 01/12/24 01/12/24 History metformin 500 mg tablet 500 mg PO DAILY 01/12/24 01/12/24 History sacubitril 49 mg-valsartan 51 mg 1 tab PO BID 01/12/24 01/13/24 History tablet (Entresto) spironolactone 25 mg tablet 25 mg PO DAILY 01/12/24 01/12/24 History New Prescriptions to Start Prescriptions: Allergies Allergy/AdvReac Type Severity Reaction Status Date / Time atorvastatin [From Lipitor] Allergy Mild Unknown Verified 01/12/24 19:16 allergy reaction pravastatin [From Pravachol] Allergy Mild Unknown Verified 01/12/24 19:16 allergy reaction rosuvastatin [From Crestor] Allergy Mild Unknown Verified 01/12/24 19:16 allergy reaction simvastatin [From Zocor] Allergy Mild Unknown Verified 01/12/24 19:16 allergy reaction Assessment and Plan *Assessment and plan (1) Heart failure with improved ejection fraction (HFimpEF): Status: Acute Category: Medical Code(s): I50.32 - Chronic diastolic (congestive) heart failure (2) Cirrhosis: Status: Acute Qualifiers: Ascites presence: with ascites Hepatic cirrhosis type: unspecified hepatic cirrhosis Qualified Code(s): K74.60 - Unspecified cirrhosis of liver; R18.8 - Other ascites Category: Medical Code(s): K74.60 - Unspecified cirrhosis of liver (3) Anasarca: Status: Acute Category: Medical Code(s): R60.1 - Generalized edema (4) Acute on chronic renal failure: Status: Acute Qualifiers: Acute renal failure type: unspecified Chronic kidney disease stage: stage 4 (severe) Qualified Code(s): N17.9 - Acute kidney failure, unspecified; N18.4 - Chronic kidney disease, stage 4 (severe) Category: Medical Code(s): N17.9 - Acute kidney failure, unspecified; N18.9 - Chronic kidney disease, unspecified (5) Aortic stenosis: Status: Chronic Qualifiers: Cardiac valve disease etiology: etiology unspecified Qualified Code(s): I35.0 - Nonrheumatic aortic (valve) stenosis Category: Medical Code(s): I35.0 - Nonrheumatic aortic (valve) stenosis (6) Right bundle branch block (RBBB): Status: Chronic Category: Medical Code(s): I45.10 - Unspecified right bundle-branch block (7) HLD (hyperlipidemia): Status: Chronic Qualifiers: Hyperlipidemia type: mixed hyperlipidemia Qualified Code(s): E78.2 - Mixed hyperlipidemia Category: Medical Code(s): E78.5 - Hyperlipidemia, unspecified (8) CAD (coronary artery disease): Status: Chronic Qualifiers: Associated angina: without angina Coronary Disease-Associated Artery /Lesion type: [place] artery [place] vs. transplanted heart: [place] heart Qualified Code(s): I25.10 - Atherosclerotic heart disease of [place] coronary artery without angina pectoris Category: Medical Code(s): I25.10 - Atherosclerotic heart disease of [place] coronary artery without angina pectoris (9) S/P coronary artery bypass graft x 5: Status: Chronic Category: Surgical Code(s): Z95.1 - Presence of aortocoronary bypass graft Plan 1. HFrEF (EF 40-45%) on GDMT -Acute on chronic exacerbation (possibly hepato-renal syndrome) with scrotal and lower extremity edema -Continue Bumex and spironolactone while monitoring renal function -Holding carvedilol and Entresto due to hypotension -BNP 5640 2. CKD, stage IV -Creatinine 2.5 with GFR 26 3. Cirrhosis and splenomegaly with anasarca noted on abdominal/pelvis CT, 01/12/2024 -Normal LFTs but lipase 362 4. CAD with coronary stenting, 05/2023 -continue Effient 5. Hyperlipidemia -LDL 48 -Continue statin therapy 6. History of hypertension but currently hypotensive without symptoms -Continue to hold Coreg and Entresto 7. Transient junctional escape rhythm -Holding carvedilol and continue monitor on telemetry -Will need event monitor on discharge 8. Pancytopenia with platelet counts 89,000 on admission -refer to Heme/Onc as outpatient 9. DM -per Dr. Cortés -Hgb A1c 5.0 Continue diuresis (net negative 1400 overnight) while monitoring BP and renal functions. Likely home tomorrow with event monitor.
[2024-01-13] MEDS: humaLOG 100 UNITS/ML 10ML VIAL (SSI) SUBCUT (11:28)
[2024-01-13 11:38] LABS: POC Glucose,Bedside 216 (70-110)
[2024-01-13] MEDS: BUMETANIDE 1MG/4ML VIAL 1 MG IV (16:23)
[2024-01-13 17:28] LABS: POC Glucose,Bedside 108 (70-110)
--- NOTE | 2024-01-13 18:06 | PC.NURSE ---
Addendum entered by Nellie Larios RN 01/13/24 18:16: patient has been slightly hypotensive this shift, MD notified earlier in shift. Original Note: patient is alert and oriented x4 and remains on RA, tolerating well. BLE edema remains, see bio. no c/o pain or nausea. patient has been diuresed this shift, voids per urinal. at 1805 patient had a nose bleed, tissues provided, bleeding has stopped at this time. no further requests at this time, call light within reach.
[2024-01-13 18:40] LABS: Chloride 110 mmol/L (98-107); Sodium 141 mmol/L (136-145)
[2024-01-13 18:41] LABS: Potassium 4.6 mmoL/L (3.5-5.1)
[2024-01-13 18:44] LABS: Anion Gap 15.6 mEq/L (5-15); Blood Urea Nitrogen 67 mg/dl (9-20); Calcium 9.8 mg/dl (8.4-10.2); Carbon Dioxide 20 mmol/L (22.0-30.0); Creatinine Clearance Estimated 32 mL/min (50-200); Estimated Glomerular Filt Rate 23 ml/min (>60); GFR (African American) 28 ML/MIN (>60); Glucose 131 mg/dl (74-100)
--- NOTE | 2024-01-13 20:00 | PC.NURSE ---
Addendum entered by Oswald Kiser RN 01/14/24 05:15: took report from oly Alvarado at 0430 Original Note: gave report to oly Hahn
[2024-01-13 21:43] LABS: POC Glucose,Bedside 173 (70-110)
[2024-01-14] VITALS: BP 116/87; PULSE 80; PULSE 84; RESP 18; TEMP 37; O2SAT 92
--- NOTE | 2024-01-14 03:28 | PC.NURSE ---
PT HAS DONE WELL THIS SHIFT. HE DID REFUSE HS PROTONIX AND INSULIN. AMBULATING INDEPENDENTLY. HE IS A MODERATE FALL RISK AND IS REFUSING TO HAVE THE BED ALARM SET FOR HIS SAFETY. NO COMPLAINTS THIS SHIFT. VSS.
[2024-01-14 04:00] VITALS: BP 94/52; PULSE 79; PULSE 80; RESP 16; TEMP 37.1; O2SAT 96; BMI 31.1
[2024-01-14] MEDS: LEVOTHYROXINE 75MCG (0.075MG) TAB 75 MCG PO (06:16)
[2024-01-14 06:23] LABS: POC Glucose,Bedside 138 (70-110)
[2024-01-14 07:05] LABS: Basophils % 0.4 % (0.1-2.0); Eosinophils # 0.1 K/mm3 (0.0-0.4); Lymphocytes % 19.5 % (10-50); Mean Corpuscular HGB Conc 33.7 g/dL (31.8-35.4); Mean Corpuscular Hemoglobin 34.2 pg (27.0-31.2); Mean Corpuscular Volume 101.7 fl (80-94); Mean Platelet Volume 8.1 fl (7.4-10.4); Monocytes # 0.5 K/mm3 (0.1-1.0); Monocytes % 8.6 % (1.7-9.3); Neutrophils # 3.7 K/mm3 (1.8-7.8); Neutrophils % 69.6 % (37.0-80.0); Platelet Count 80 K/mm3 (142-424); Red Blood Count 2.88 M/mm3 (4.60-6.20); Red Cell Distribution Width 14.3 % (11.5-17.5); White Blood Count 5.3 K/mm3 (4.8-10.8)
[2024-01-14 07:12] LABS: Alanine Aminotransferase 24 U/L (12-78); Albumin Level 3.2 g/dl (3.5-5.0); Alkaline Phosphatase 98 U/L (38-126); Anion Gap 13.7 mEq/L (5-15); Aspartate Amino Transferase 34 U/L (17-59); Bilirubin,Total 1.2 mg/dl (0.2-1.3); Blood Urea Nitrogen 65 mg/dl (9-20); Calcium 9.2 mg/dl (8.4-10.2); Carbon Dioxide 19 mmol/L (22.0-30.0); Chloride 111 mmol/L (98-107); Creatinine Clearance Estimated 38 mL/min (50-200); Estimated Glomerular Filt Rate 28 ml/min (>60); GFR (African American) 34 ML/MIN (>60); Globulin 3.1 g/dL (1.3-3.2); Glucose 121 mg/dl (74-100); Magnesium 1.8 mg/dl (1.6-2.3); Potassium 4.7 mmoL/L (3.5-5.1); Sodium 139 mmol/L (136-145); Total Protein,Serum 6.3 g/dl (6.3-8.2)
[2024-01-14 07:23] LABS: Hemoglobin 9.8 g/dL (14.1-18.0)
[2024-01-14 07:24] LABS: Hematocrit 29.2 % (42.0-52.0)
--- NOTE | 2024-01-14 07:47 | P.DS_ITS ---
General Admission date:: 01/12/24 Discharge date: 01/14/24 HPI HPI HPI: Mr. Kramer is a 73-year-old male with significant history of CHF, cirrhosis, CKD, history of CABG, status post PCI with stents, type 2 diabetes. He presented to the ER on the recommendation of cardiology for further evaluation of possible CHF exacerbation. Patient has had progressive increase in his weight over the past 8 weeks with increased swelling in his legs. Has been seen by his liver doctor and truss assembler both expressing concern for his volume overload. On workup in the ER, found to have elevated BNP of 5600, BUN 66, creatinine 2.4, these numbers are comparable to labs obtained at last week. Stable on room air. Significant dyspnea with exertion however. Has increased swelling in his legs with edema all the way up to his lower abdomen. Not responding to p.o. diuresis at home. ER consulted medicine for admission for further evaluation by cardiology and attempted diuresis for his volume overload. On evaluation after arriving to the floor. Patient is in no acute distress. Able to stand with assistance. On room air. Denies any chest pain, nausea, vomiting. Reports having a hard time peeing, thinks that secondary to edema in his region. Is resistant to a catheter at this time. Hospital Course Hospital Course Hospital Course: 73-year-old male with multiple complex comorbidities including CKD, [place] cirrhosis, CHF, diabetes. Presented to the ER with worsening shortness of breath and swelling in his legs. Discussed case with ER physician, request admission for diuresis, cardiology eval, consideration for right heart cath. I agreed to admit for further management. Stable on room air. Having response to diuresis, needs continued management with further diuresis. Clinically improved. Stable on room air. Stable to discharge home with close follow-up with specialist as an outpatient. -2 L during admission. Problems addressed as follows: Acute CHF exacerbation CAD History of CABG HLD -Discussed case with cardiology, recommended continued aggressive diuresis. Treated with Bumex and spironolactone during admission. Transitioned to oral minute discharge with Bumex and spironolactone. Continue prasugrel 10 mg. Continue carvedilol 6.25 mg twice daily. Echo obtained 12/28/23 showing essentially stable EF at 45% with moderate aortic stenosis compared to echo from 07/2023. Concern for renal congestion versus possibly cardiorenal syndrome versus hepatorenal syndrome. Overall did well during admission. BNP was elevated at 5600 on admission. Breathing better, diuresed well. Stable to discharge home with further management as an outpatient. Of note, BNP improved to this visit, lower than BNP obtained at last week of approximately 7000 AB on CKD: Creatinine 1.7 in June. 2.4 recently at . Concern his CKD is worsening. Recently saw nephrology a week ago. BUN 65, creatinine 2.3 on discharge. Has follow-up with nephrology on the . Recommended he keep his appointment. Adequate urine. Hypothyroid: Continue levothyroxine 75 mcg daily. TSH 3.9 Diabetes: A1c normal at less than 6. Glucose remains normal during admission. GERD: Continue protonix 40mg daily Total time spent on discharge 32 minutes in counseling, documentation, chart review, and direct care with patient. Exam Data for Last 24 hours Vital signs and Labs for Last 24 Hours: Temp Pulse Resp BP Pulse Ox O2 Del Method 98.7 F 79 16 94/52 L 96 Room Air 01/14/24 04:00 01/14/24 04:00 01/14/24 04:00 01/14/24 04:00 01/14/24 04:00 01/14/24 06:39 Laboratory Results - last 24 hr 01/12/24 14:45: Hepatitis C Antibody Non reactive 01/13/24 06:52: WBC 5.0 D, RBC 3.10 L, Hgb 11.0 L, Hct 31.9 L, MCV 102.7 H, MCH 35.4 H, MCHC 34.5, RDW 14.3, Plt Count 101 L, MPV 8.5, Neut % (Auto) 61.1, Lymph % (Auto) 25.4, [place] % (Auto) 9.8 H, Eos % (Auto) 3.1, Baso % (Auto) 0.7, Neut # (Auto) 3.0, Lymph # (Auto) 1.3, [place] # (Auto) 0.5, Eos # (Auto) 0.2, Baso # (Auto) 0.0, Sodium 143, Potassium 4.6, Chloride 112 H, Carbon Dioxide 20 L, Anion Gap 15.6 H, BUN 65 H, Creatinine 2.50 H, Estimated Creat Clear 35, Estimated GFR 26 L, Est GFR ( Amer) 31 L, Glucose 104 H D, Hemoglobin A1c 5.0, Calcium 9.4, Magnesium 2.0, Total Bilirubin 1.3, AST 38, ALT 28, Alkaline Phosphatase 97, Total Protein 7.1, Albumin 3.6, Globulin 3.5 H, Albumin/Globulin Ratio 1.0 L, Triglycerides 83, Cholesterol 117 L, LDL Cholesterol Direct 48.19 L , VLDL Cholesterol 17, HDL Cholesterol 44, Cholesterol/HDL Ratio 2.7, TSH 3.89 01/13/24 11:17: POC Glucose 216 H 01/13/24 16:22: POC Glucose 108 01/13/24 18:02: Sodium 141, Potassium 4.6, Chloride 110 H, Carbon Dioxide 20 L, Anion Gap 15.6 H, BUN 67 H, Creatinine 2.70 H, Estimated Creat Clear 32, Estimated GFR 23 L, Est GFR ( Amer) 28 L, Glucose 131 H D, Calcium 9.8 01/13/24 21:16: POC Glucose 173 H 01/14/24 05:43: POC Glucose 138 H 01/14/24 06:14: WBC 5.3, RBC 2.88 L, Hgb 9.8 L D, Hct 29.2 L, MCV 101.7 H, MCH 34.2 H, MCHC 33.7, RDW 14.3, Plt Count 80 L, MPV 8.1, Neut % (Auto) 69.6, Lymph % (Auto) 19.5, [place] % (Auto) 8.6, Eos % (Auto) 2.0, Baso % (Auto) 0.4, Neut # (A uto) 3.7, Lymph # (Auto) 1.0, [place] # (Auto) 0.5, Eos # (Auto) 0.1, Baso # (Auto) 0.0, Sodium 139, Potassium 4.7, Chloride 111 H, Carbon Dioxide 19 L, Anion Gap 13.7, BUN 65 H, Creatinine 2.30 H, Estimated Creat Clear 38, Estimated GFR 28 L, Est GFR ( Amer) 34 L D, Glucose 121 H, Calcium 9.2, Magnesium 1.8, Total Bilirubin 1.2, AST 34, ALT 24, Alkaline Phosphatase 98, Total Protein 6.3, Albumin 3.2 L D, Globulin 3.1, Albumin/Globulin Ratio 1.0 L I & O for Last 24 hours: Intake & Output 01/11/24 01/12/24 01/13/24 01/14/24 23:59 23:59 23:59 23:59 Intake Total 510 / 510 200 / 200 Output Total 800 / 800 1400 / 1400 700 / 700 Balance -800 / -800 -890 / -890 -500 / -500 Weight 90.718 kg 92.85 kg 93.123 kg Constitutional Constitutional: no acute distress, average body habitus and cooperative *Routine HEENT Exam Head: Present normocephalic Eye: Present PERRL *Routine Respiratory Exam Respiratory: Present CTA bilaterally; Absent accessory muscle use, wheezes or crackles *Routine Cardiovascular Exam Cardiovascular: Present RRR, Normal S1, Normal S2 and murmur Comments: Right groin cath site normal on inspection and palpation *Routine Abdominal Exam Abdominal: Present soft; Absent tenderness *Routine Rectal Exam Patient deferred: visual exam *Routine Exam Patient deferred: penile exam *Routine Extremities Exam Extremities: Present pulses intact; Absent cyanosis or edema *Routine Skin Exam Skin: Present intact; Absent erythema or wounds *Routine Neurological Exam Neurological: Present alert, oriented X3 and moving all extremities; Absent altered mental status Routine Psychiatric Exam Psychiatric: Present cooperative Results Data Completed and Pending Labs on day of discharge: Labs from last 24 hours 01/14/24 01/14/24 01/13/24 06:14 05:43 21:16 WBC 5.3 RBC 2.88 L Hgb 9.8 L D Hct 29.2 L MCV 101.7 H MCH 34.2 H MCHC 33.7 RDW 14.3 Plt Count 80 L MPV 8.1 Neut % (Auto) 69.6 Lymph % (Auto) 19.5 [place] % (Auto) 8.6 Eos % (Auto) 2.0 Baso % (Auto) 0.4 Neut # (Auto) 3.7 Lymph # (Auto) 1.0 [place] # (Auto) 0.5 Eos # (Auto) 0.1 Baso # (Auto) 0.0 Sodium 139 Potassium 4.7 Chloride 111 H Carbon Dioxide 19 L Anion Gap 13.7 BUN 65 H Creatinine 2.30 H Estimated Creat Clear 38 Estimated GFR 28 L Est GFR ( Amer) 34 L D Glucose 121 H POC Glucose 138 H 173 H Hemoglobin A1c Calcium 9.2 Magnesium 1.8 Total Bilirubin 1.2 AST 34 ALT 24 Alkaline Phosphatase 98 Total Protein 6.3 Albumin 3.2 L D Globulin 3.1 Albumin/Globulin Ratio 1.0 L Triglycerides Cholesterol LDL Cholesterol Direct VLDL Cholesterol HDL Cholesterol Cholesterol/HDL Ratio TSH Hepatitis C Antibody 01/13/24 01/13/24 01/13/24 18:02 16:22 11:17 WBC RBC Hgb Hct MCV MCH MCHC RDW Plt Count MPV Neut % (Auto) Lymph % (Auto) [place] % (Auto) Eos % (Auto) Baso % (Auto) Neut # (Auto) Lymph # (Auto) [place] # (Auto) Eos # (Auto) Baso # (Auto) Sodium 141 Potassium 4.6 Chloride 110 H Carbon Dioxide 20 L Anion Gap 15.6 H BUN 67 H Creatinine 2.70 H Estimated Creat Clear 32 Estimated GFR 23 L Est GFR ( Amer) 28 L Glucose 131 H D POC Glucose 108 216 H Hemoglobin A1c Calcium 9.8 Magnesium Total Bilirubin AST ALT Alkaline Phosphatase Total Protein Albumin Globulin Albumin/Globulin Ratio Triglycerides Cholesterol LDL Cholesterol Direct VLDL Cholesterol HDL Cholesterol Cholesterol/HDL Ratio TSH Hepatitis C Antibody 01/13/24 01/12/24 06:52 14:45 WBC 5.0 D RBC 3.10 L Hgb 11.0 L Hct 31.9 L MCV 102.7 H MCH 35.4 H MCHC 34.5 RDW 14.3 Plt Count 101 L MPV 8.5 Neut % (Auto) 61.1 Lymph % (Auto) 25.4 [place] % (Auto) 9.8 H Eos % (Auto) 3.1 Baso % (Auto) 0.7 Neut # (Auto) 3.0 Lymph # (Auto) 1.3 [place] # (Auto) 0.5 Eos # (Auto) 0.2 Baso # (Auto) 0.0 Sodium 143 Potassium 4.6 Chloride 112 H Carbon Dioxide 20 L Anion Gap 15.6 H BUN 65 H Creatinine 2.50 H Estimated Creat Clear 35 Estimated GFR 26 L Est GFR ( Amer) 31 L Glucose 104 H D POC Glucose Hemoglobin A1c 5.0 Calcium 9.4 Magnesium 2.0 Total Bilirubin 1.3 AST 38 ALT 28 Alkaline Phosphatase 97 Total Protein 7.1 Albumin 3.6 Globulin 3.5 H Albumin/Globulin Ratio 1.0 L Triglycerides 83 Cholesterol 117 L LDL Cholesterol Direct 48.19 L VLDL Cholesterol 17 HDL Cholesterol 44 Cholesterol/HDL Ratio 2.7 TSH 3.89 Hepatitis C Antibody Non reactive DS: Diagnosis Discharge Diagnosis (1) CHF (congestive heart failure): Status: Acute Code(s): I50.9 - Heart failure, unspecified (2) HFrEF (heart failure with reduced ejection fraction): Status: Acute Code(s): I50.20 - Unspecified systolic (congestive) heart failure (3) Chronic kidney disease: Status: Acute Code(s): N18.9 - Chronic kidney disease, unspecified Qualifiers: Chronic kidney disease stage: unspecified stage Qualified Code(s): N18.9 - Chronic kidney disease, unspecified (4) Anasarca: Status: Acute Code(s): R60.1 - Generalized edema (5) Diabetes: Status: Chronic Code(s): E11.9 - Type 2 diabetes mellitus without complications Qualifiers: Diabetes mellitus complication status: without complication Diabetes mellitus usp insulin use: without superintendent container terminal use Diabetes mellitus type: type 2 Qualified Code(s): E11.9 - Type 2 diabetes mellitus without compl ications (6) S/P coronary artery bypass graft x 5: Status: Chronic Code(s): Z95.1 - Presence of aortocoronary bypass graft (7) CAD (coronary artery disease): Status: Chronic Code(s): I25.10 - Atherosclerotic heart disease of [place] coronary artery without angina pectoris Qualifiers: Associated angina: without angina Coronary Disease-Associated Artery/Lesion type: [place] artery [place] vs. transplanted heart: [place] heart Qualified Code(s): I25.10 - Atherosclerotic heart disease of [place] coronary artery without angina pectoris (8) HHD (hypertensive heart disease): Status: Chronic Code(s): I11.9 - Hypertensive heart disease without heart failure Qualifiers: Heart failure presence: without heart failure Qualified Code(s): I11.9 - Hypertensive heart disease without heart failure (9) Hypothyroid: Status: Acute Code(s): E03.9 - Hypothyroidism, unspecified (10) Cirrhosis: Status: Acute Code(s): K74.60 - Unspecified cirrhosis of liver Qualifiers: Ascites presence: with ascites Hepatic cirrhosis type: unspecified hepatic cirrhosis Qualified Code(s): K74.60 - Unspecified cirrhosis of liver; R18.8 - Other ascites Meds Home Medications and Allergies Home Medications ?Medication ?Instructions ?Recorded ?Confirmed ?Type carvedilol 6.25 mg tablet 6.25 mg PO BID 07/21/18 01/12/24 History febuxostat 40 mg tablet (Uloric) 40 mg PO DAILY 07/21/18 01/12/24 History levothyroxine 75 mcg tablet 75 mcg PO DAILY 07/21/18 01/12/24 History pantoprazole 40 mg tablet,delayed 40 mg PO DAILY 07/21/18 01/12/24 History release (Protonix) pitavastatin calcium 2 mg tablet 2 mg PO DAILY 07/21/18 01/12/24 History (Livalo) prasugrel 10 mg tablet (Effient) 10 mg PO DAILY 07/21/18 01/12/24 History nitroglycerin 0.4 mg sublingual 0.4 mg buccal NEEDED PRN Chest 03/17/23 01/12/24 History tablet Pain tirzepatide 2.5 mg/0.5 mL 2.5 mg SQ WEEKLY 03/17/23 01/12/24 History subcutaneous pen injector (Mounjaro) metformin 500 mg tablet 500 mg PO DAILY 01/12/24 01/12/24 History sacubitril 49 mg-valsartan 51 mg 1 tab PO BID 01/12/24 01/13/24 History tablet (Entresto) spironolactone 25 mg tablet 50 mg (2 x 25 mg) PO DAILY 30 days 01/14/24 01/12/24 Rx #60 tabs bumetanide 2 mg tablet 2 mg PO BID #60 tabs 01/18/24 Rx New Prescriptions to Start Prescriptions: Allergies Allergy/AdvReac Type Severity Reaction Status Date / Time atorvastatin [From Lipitor] Allergy Mild Unknown Verified 01/12/24 19:16 allergy reaction pravastatin [From Pravachol] Allergy Mild Unknown Verified 01/12/24 19:16 allergy reaction rosuvastatin [From Crestor] Allergy Mild Unknown Verified 01/12/24 19:16 allergy reaction simvastatin [From Zocor] Allergy Mild Unknown Verified 01/12/24 19:16 allergy reaction Discharge Plan Disposition Patient Disposition: Home, Self-Care Condition: Fair Discharge Order Discharge Orders: Discharge Order (Routine); Ordered 01/14/24 Ordered By: Arnulfo Cortés Follow up Plan Follow up with: Meg Teixeira MD [Primary Care Provider] - 01/21/24 2:45 pm Rob Matamoros MD [Staff Physician] - 01/28/24 2:00 pm Prescriptions/Medication Reconciliation: Continued prasugrel [Effient] 10 mg tablet 10 mg PO DAILY levothyroxine 75 mcg tablet 75 mcg PO DAILY Livalo 2 mg tablet 2 mg PO DAILY pantoprazole [Protonix] 40 mg tablet,delayed release (DR/EC) 40 mg PO DAILY Uloric 40 mg tablet 40 mg PO DAILY nitroglycerin 0.4 mg tablet, sublingual 0.4 mg buccal NEEDED PRN (Reason: Chest Pain) Patient Comments: DISSOLVE 1 TABLET UNDER TONGUE EVERY 5 MINS FOR UP TO 3 DOSES NEEDED FOR CHEST PAIN. CALL 911 IF PAIN PERSISTS Mounjaro 2.5 mg/0.5 mL pen injector 2.5 mg SQ WEEKLY metformin 500 mg tablet 500 mg PO DAILY Changed spironolactone 25 mg tablet 50 mg PO DAILY 30 Days Qty: 60 0RF Patient Comments: TAKE 1 TABLET BY MOUTH DAILY Held carvedilol 6.25 mg tablet 6.25 mg PO BID Hold Instructions: Pending follow-up with cardiology and reevaluation of blood pressure Entresto 49-51 mg tablet 1 tab PO BID Hold Instructions: Pending follow-up with cardiology and improvement in blood pressure Discontinued furosemide 20 mg tablet 20 mg PO BID Patient Comments: TAKE 1 TABLET BY MOUTH IN THE MORNING AND 1 TABLET 6 HOURS LATER EVERY DAY No Action bumetanide 2 mg tablet 2 mg PO BID Qty: 60 0RF Other Ambulatory Orders: Basic Metabolic Panel (Routine) Timeframe: 3 Days Facility: [facility] - Location: Laboratory Ordered By: Arnulfo Cortés Problem Reconciliation Problems Reviewed?: Yes Patient Discharge Instructions ACTIVITY: Continue current activity DIET: continue same diet Patient Instructions: DI for Heart Failure, DI for Cirrhosis, DI for Acute Kidney Injury Print Language: Lithuanian Providers Primary Care Provider: Meg Teixeira Admit Provider: Arnulfo Cortés Attending Provider: Arnulfo Cortés
[2024-01-14 07:59] VITALS: BP 96/55; PULSE 81; RESP 18; TEMP 37; O2SAT 97
--- NOTE | 2024-01-14 09:09 | EXP.CARD.PN ---
Subjective Subjective Date: 01/14/24 Time: 09:10 Principal diagnosis: Edema of LE's, anasarca Interval history: 73-year-old white male laying in bed in no acute distress. Still with some scrotal edema but improved per patient. Lower extremity edema has also improved as well. Patient is ready to go home this afternoon. Exam Data for Last 24 hours Vital signs and Labs for Last 24 Hours: Temp Pulse Resp BP Pulse Ox O2 Del Method 98.6 F 81 18 96/55 L 97 Room Air 01/14/24 07:59 01/14/24 07:59 01/14/24 07:59 01/14/24 07:59 01/14/24 07:59 01/14/24 07:59 Laboratory Results - last 24 hr 01/12/24 14:45: Hepatitis C Antibody Non reactive 01/13/24 06:52: Hemoglobin A1c 5.0 01/13/24 11:17: POC Glucose 216 H 01/13/24 16:22: POC Glucose 108 01/13/24 18:02: Sodium 141, Potassium 4.6, Chloride 110 H, Carbon Dioxide 20 L, Anion Gap 15.6 H, BUN 67 H, Creatinine 2.70 H, Estimated Creat Clear 32, Estimated GFR 23 L, Est GFR ( Amer) 28 L, Glucose 131 H D, Calcium 9.8 01/13/24 21:16: POC Glucose 173 H 01/14/24 05:43: POC Glucose 138 H 01/14/24 06:14: WBC 5.3, RBC 2.88 L, Hgb 9.8 L D, Hct 29.2 L, MCV 101.7 H, MCH 34.2 H, MCHC 33.7, RDW 14.3, Plt Count 80 L, MPV 8.1, Neut % (Auto) 69.6, Lymph % (Auto) 19.5, [place] % (Auto) 8.6, Eos % (Auto) 2.0, Baso % (Auto) 0.4, Neut # (Auto) 3.7, Lymph # (Auto) 1.0, [place] # (Auto) 0.5, Eos # (Auto) 0.1, Baso # (Auto) 0.0, Sodium 139, Potassium 4.7, Chloride 111 H, Carbon Dioxide 19 L, Anion Gap 13.7, BUN 65 H, Creatinine 2.30 H, Estimated Creat Clear 38, Estimated GFR 28 L, Est GFR ( Amer) 34 L D, Glucose 121 H, Calcium 9.2, Magnesium 1.8, Total Bilirubin 1.2, AST 34, ALT 24, Alkaline Phosphatase 98, Total Protein 6.3, Albumin 3.2 L D, Globulin 3.1, Albumin/Globulin Ratio 1.0 L I & O for Last 24 hours: Intake & Output 01/11/24 01/12/24 01/13/24 01/14/24 11:59 11:59 11:59 11:59 Intake Total 950 / 950 Output Total 1400 / 1400 1500 / 1500 Balance -1400 / -1400 -550 / -550 Weight 204 lb 11.2 oz 205 lb 4.8 oz Constitutional Constitutional: no acute distress *Routine Respiratory Exam Respiratory: Present CTA bilaterally *Routine Cardiovascular Exam Cardiovascular: Present RRR and murmur *Routine Extremities Exam Extremities: Present edema Progress Note: A&P Assessment and plan (1) CHF (congestive heart failure): Status: Acute (2) HFrEF (heart failure with reduced ejection fraction): Status: Acute (3) Chronic kidney disease: Status: Acute (4) Anasarca: Status: Acute (5) Diabetes: Status: Chronic (6) S/P coronary artery bypass graft x 5: Status: Chronic (7) CAD (coronary artery disease): Status: Chronic (8) HHD (hypertensive heart disease): Status: Chronic (9) Hypothyroid: Status: Acute (10) Cirrhosis: Status: Acute Assessment and Plan Assessment and Plan for All Diagnoses:: 1. HFrEF (EF 40-45%) on GDMT -Acute on chronic exacerbation (possibly hepato-renal syndrome) with scrotal and lower extremity edema -Continue Bumex and spironolactone while monitoring renal function -Holding carvedilol and Entresto due to hypotension -BNP 5640 2. CKD, stage IV -Creatinine 2.3 with GFR 28 3. Cirrhosis and splenomegaly with anasarca noted on abdominal/pelvis CT, 01/12/2024 -Normal LFTs but lipase 362 4. CAD with coronary stenting, 05/2023 -continue Effient 5. Hyperlipidemia -LDL 48 -Continue statin therapy 6. History of hypertension but currently hypotensive without symptoms -Continue to hold Coreg and Entresto 7. Transient junctional escape rhythm -Holding carvedilol and continue monitor on telemetry -Will need event monitor on discharge 8. Pancytopenia with platelet counts 89,000 on admission -refer to Heme/Onc as outpatient 9. DM -per Dr. Cortés -Hgb A1c 5.0 10. Moderate aortic stenosis by echocardiogram 12/28/2023 with mild LV dilation IV bumex this AM. Plan discharge later today. Home meds: Bumex 2 mg daily Spironolactone 50 mg daily Effient 10 mg daily Continue to hold Coreg and Entresto at this time due to hypotension and asymptomatic brief junctional rhythm Follow-up in our office in 1 week. Event monitor, 2 weeks, to be placed at discharge.
[2024-01-14] MEDS: BUMETANIDE 1MG/4ML VIAL 1 MG IV (09:20)
[2024-01-14] MEDS: SPIRONOLACTONE 25MG TABLET 50 MG PO (09:21)
[2024-01-14 09:44] LABS: Lipase 503 U/L (23-300)
[2024-01-14 09:51] LABS: NT Pro Brain Natriuretic Pep. 7840 pg/mL (0-125)
[2024-01-14] MEDS: humaLOG 100 UNITS/ML 10ML VIAL (SSI) SUBCUT (11:01)
[2024-01-14 11:24] VITALS: BP 108/54; PULSE 76; RESP 18; TEMP 37; O2SAT 98
[2024-01-16 05:15] LABS: POC Glucose,Bedside 174 (70-110)
--- NOTE | 2024-01-18 13:11 | CARE MANAGER ---
Contacted patient related to hospital discharge. Patient reports he has swelling the same as when he left. He is aware of follow up appointments and we reviewed medications. Denies any other questions at this time. VENTURA Winter
== END 2024-01-14 14:15 | disposition home or self-care (01) | DRG 291 ==
LOC: ER 17:04 → 2ND 17:21
PROVIDERS: Emergency Medicine; Physician Assistant; Admitting Provider Internal Medicine Adolescent Medicine; Emergency Provider Emergency Medicine; PCP Pain Medicine Pain Medicine; Visit Provider Internal Medicine Adolescent Medicine
DX: I13.0 Hypertensive heart and chronic kidney disease with heart failure and stage 1 through stage 4 chronic kidney disease, or unspecified chronic kidney disease (principal); I50.23 Acute on chronic systolic (congestive) heart failure; N18.4 Chronic kidney disease, stage 4 (severe); R18.8 Other ascites; N17.9 Acute kidney failure, unspecified; I25.10 Atherosclerotic heart disease of native coronary artery without angina pectoris; E03.9 Hypothyroidism, unspecified; E11.22 Type 2 diabetes mellitus with diabetic chronic kidney disease; E78.5 Hyperlipidemia, unspecified; I25.5 Ischemic cardiomyopathy; K75.81 Nonalcoholic steatohepatitis (NASH); Z79.899 Other long term (current) drug therapy; Z79.84 Long term (current) use of oral hypoglycemic drugs; Z95.5 Presence of coronary angioplasty implant and graft; Z95.1 Presence of aortocoronary bypass graft
CPT/HCPCS: 36415; 74176; 80048; 80053; 80061; 81001; 82248; 82962; 83036; 83605; 83690; 83735; 83880; 84443; 85025; 85610; 85730; 86803; 87389; 87636; 99285; J1939

== ENCOUNTER 2024-03-07 14:39 | Outpatient (CLI) | payer MEDICARE, SELFPAY ==
[2024-03-07 15:07] LABS: Basophils % 0.3 % (0.1-2.0); Eosinophils # 0.1 K/mm3 (0.0-0.4); Eosinophils % 3.2 % (0.1-12.0); Hematocrit 28.4 % (42.0-52.0); Hemoglobin 9.4 g/dL (14.1-18.0); Lymphocytes # 0.6 K/mm3 (0.7-4.5); Lymphocytes % 15.9 % (10-50); Mean Corpuscular HGB Conc 33.1 g/dL (31.8-35.4); Mean Corpuscular Hemoglobin 32.6 pg (27.0-31.2); Mean Corpuscular Volume 98.6 fl (80-94); Mean Platelet Volume 10.2 fl (7.4-10.4); Monocytes # 0.5 K/mm3 (0.1-1.0); Monocytes % 14.3 % (1.7-9.3); Neutrophils # 2.5 K/mm3 (1.8-7.8); Platelet Count 71 K/mm3 (142-424); Red Blood Count 2.88 M/mm3 (4.60-6.20); White Blood Count 3.8 K/mm3 (4.8-10.8)
[2024-03-07 15:32] LABS: Chloride 103 mmol/L (98-107); Potassium 3.8 mmoL/L (3.5-5.1); Sodium 136 mmol/L (136-145)
[2024-03-07 15:35] LABS: Alanine Aminotransferase 35 U/L (12-78); Alkaline Phosphatase 109 U/L (38-126); Anion Gap 14.8 mEq/L (5-15); Aspartate Amino Transferase 46 U/L (17-59); Bilirubin,Indirect 1.5 mg/dL (0.0-0.9); Bilirubin,Total 2.5 mg/dl (0.2-1.3); Bilirubin,Unconjugated 1.5 mg/dL (0.0-1.1); Calcium 9.6 mg/dl (8.4-10.2); Carbon Dioxide 22 mmol/L (22.0-30.0); Cholesterol 95 mg/dl (140-200); Estimated Glomerular Filt Rate 24 ml/min (>60); GFR (African American) 30 ML/MIN (>60); Glucose 216 mg/dl (74-100); Magnesium 1.9 mg/dl (1.6-2.3); Total Protein,Serum 6.5 g/dl (6.3-8.2); Triglycerides 74 mg/dl (30-150); VLDL Cholesterol 15 mg/dL (0-40)
[2024-03-07 15:36] LABS: Chol/HDL Ratio 3.7 (1-3.5); HDL Cholesterol 26 mg/dl (40-60)
[2024-03-07 15:41] LABS: Blood Urea Nitrogen 117 mg/dl (9-20)
[2024-03-07 15:52] LABS: Free T4 (Free Thyroxine) 1.45 ng/dl (0.78-2.19)
[2024-03-07 16:17] LABS: Thyroid Stimulating Hormone 3.06 uIU/mL (0.465-4.68)
[2024-03-07 17:20] LABS: Albumin Level 3.7 g/dl (3.5-5.0)
== END 2024-03-07 23:59 | disposition home or self-care (01) ==
LOC: LAB 14:40
PROVIDERS: Visit Provider Nurse Practitioner Family
DX: I11.0 Hypertensive heart disease with heart failure (principal); I50.20 Unspecified systolic (congestive) heart failure; E11.22 Type 2 diabetes mellitus with diabetic chronic kidney disease; I25.10 Atherosclerotic heart disease of native coronary artery without angina pectoris; E78.5 Hyperlipidemia, unspecified; Z79.84 Long term (current) use of oral hypoglycemic drugs; Z79.85 Long-term (current) use of injectable non-insulin antidiabetic drugs
CPT/HCPCS: 36415; 80048; 80061; 80076; 83735; 84439; 84443; 85025